=== PATIENT | female | born 1945 | race Caucasian/White ===

== ENCOUNTER 2019-10-23 15:15 | Outpatient (RCR) | payer OTHER, SELFPAY ==
[2019-10-01 15:08] VITALS: BP_SYST 130
--- NOTE | 2019-10-01 16:09 | PTOPEVAL ---
PHYSICAL THERAPY EVALUATION AND PLAN OF CARE 10-01-2019 The PT evaluation was completed for R and L shoulder pain. Her plan of treatment is scheduled for 1-2 x/week for 4 weeks. Thank you for referring Jeanette Pan to [facility]. Please review, sign, date and return this plan of care PAVEL. I agree with and certify that the following plan of care is medically necessary. Referring Physician Date Attending Provider: Elie Soria DO *PT Outpatient Evaluation Start: 10/01/19 15:08 Document 10/01/19 15:08 BRADY (Rec: 10/01/19 16:02 BRADY [email or web address]) Outpatient Past Medical History Past Medical History Source of Past Medical History Patient Neurological History Hx Neurological Disorders No Significant History Cardiovascular History Hx Hypertension Yes: meds Respiratory History Hx Respiratory Disorders No Significant History Gastrointestinal History Hx Gastrointestinal Disorders No Significant History Genitourinary History Hx Genitourinary Disorders No Significant History Musculoskeletal History Hx Arthritis Yes: hands/thumbs Hematological History Hx Hematological Disorders No Significant History Endocrine History Hx Diabetes Yes: meds HEENT History Hx Other HEENT Disorders Yes: tinnitis B ears, wear glasses Psychosocial History Hx Depression Yes: doing better, taking meds Other History Hx Other Surgeries Yes: gall bladder, ovarian cyst removed--benign Evaluation Information Problem Diagnosis R and L shoulder pain Onset August 31, 2019 Subjective Information R shoulder about one month ago Query Text:As Reported By Patient/ , when throwing trash bag over Family head to throw out and hurt immediately; L shoulder hurting a while was under arm at arm pit, is less there now and moved to side of arm; Diagnostic Tests X-Rays For This Problem Yes: L shoulder-Ok Previous Treatments Previous Treatments For This Problem no therapy for shoulders Prior Level of Function Activity Level (Last 3 Months) 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
--- NOTE | 2019-10-16 14:42 | PCPTNOTE ---
Patient did not show up for scheduled appointment this date.
--- NOTE | 2019-10-30 15:44 | PCPTNOTE ---
pt did not show for today's reevaluation.
--- NOTE | 2019-12-02 12:44 | PCPTNOTE ---
PHYSICAL THERAPY DISCHARGE 12-02-2019 Attending Provider: Elie Soria DO Patient:Jeanette Pan Date of :1945 Mrs. Pan has not returned for any further treatments since 10/23/2019, therefore she will be discharged at this time. She has received 3 PT sessions, for the diagnosis of R and L shoulder pain, she then stopped attending PT. The goals were not addressed. Thank you for referring Jeanette to [facility]. Please review, sign, date and return this discharge summary PAVEL. I have been updated about the patient's current status and I agree with discharge from the above service at this time. Referring Physician Date
== END 2019-12-02 14:03 | disposition home or self-care (01) ==
LOC: ANHPT 15:15
PROVIDERS: PCP Internal Medicine; Visit Provider Internal Medicine
DX: M25.511 Pain in right shoulder (principal); M25.512 Pain in left shoulder
CPT/HCPCS: 97110; 97140; 97161

== ENCOUNTER 2020-01-07 10:50 | Outpatient (CLI) | payer OTHER, SELFPAY | END 2020-01-07 10:51 | disposition home or self-care (01) | LOC: ANHLAB 10:52 | PROVIDERS: PCP Internal Medicine; Visit Provider Internal Medicine | DX: E03.9 Hypothyroidism, unspecified (principal) | CPT/HCPCS: 36415; 84443 ==

== ENCOUNTER 2020-04-27 13:55 | Outpatient (CLI) | payer OTHER, SELFPAY ==
--- NOTE | ~2020-04-27 | MM_ITS ---
EXAMINATION: MM screening pascale BI w jazmyn HISTORY: Screening mammogram TECHNIQUE: Craniocaudal and mediolateral oblique 3-D tomosynthesis images were obtained and synthetic 2-D images were generated. CAD analysis was submitted and interpreted. COMPARISON: 03/20/2018, 03/17/2017, 02/09/2016 bilateral digital screening mammogram examinations BREAST PARENCHYMAL COMPOSITION: The breasts are heterogeneously dense, which may obscure small masses . FINDINGS: There are scattered bilateral benign calcifications. There is no evidence of suspicious ma ss, calcification, or architectural distortion to suggest malignancy in either breast. There has been no suspicious interval change. IMPRESSION: 1. No mammographic evidence of malignancy. 2. Recommend routine screening mammography in one year. BI-RADS Category 2: Benign finding(s). Reviewed, dictated and finalized at location A. FARMER
--- NOTE | ~2020-04-27 | DEXA_ITS ---
Bone Density Report Name: Jeanette Pan Age: 74 Sex: Female Ethnicity: White Date of : 1945 Indication: postmenopausal; height loss; hysterectomy; Referring Provider: Nhi Daily Study: Bone densitometry was performed. Exam Date: April 27, 2020 Accession number: [id number] Bone Density: Region BMD T-score Z-score Classification AP Spine (L1, L2) 0.971 -0.1 2.2 Normal Femoral Neck (Left) 0.561 -2.6 -0.5 Osteoporosis Total Hip (Left) 0.842 -0.8 1.0 Normal Total Hip Bilateral Avg 0.839 -0.8 1.0 Normal Femoral Neck (Right) 0.632 -2.0 0.2 Osteopenia Total Hip (Right) 0.834 -0.9 1.0 Normal World Health Organization criteria for BMD impression classify patients as: Normal (T-score at or above -1.0), Osteopenia (T-score between -1.0 and -2.5), or Osteoporosis (T-score at or below -2.5). 10-year Fracture Risk: FRAX not reported because: Some T-score for Spine Total or Hip Total or Femoral Neck at or below -2.5 Previous Exams: Region Exam Age BMD T-score BMD Change BMD Change Date g/cm2 vs Baseline vs Previous AP Spine(L1, L2) 04/27/2020 74 0.971 -0.1 -0.066(-6.4%)# -0.022(-2.2%) 03/17/2017 71 0.993 0.1 -0.044(-4.3%)# -0.044(-4.3%)# 01/15/2009 63 1.037 0.5 Total Hip(Left) 04/27/2020 74 0.842 -0.8 0.006(0.8%)# -0.007(-0.9%) 03/17/2017 71 0.849 -0.8 0.014(1.7%)# 0.014(1.7%)# 01/15/2009 63 0.835 -0.9 Total Hip(Right) 04/27/2020 74 0.834 -0.9 -0.020(-2.3%)# -0.035(-4.0%)* 03/17/2017 71 0.869 -0.6 0.015(1.8%)# 0.015(1.8%)# 01/15/2009 63 0.854 -0.7 *Denotes significance at 95% confidence level, LSC for AP Spine = 0.022 g/cm2, LSC for Total Hip = 0.027 g/cm2 Clinical Information Provided by Patient: Has used the following medications: Vitamin D, Calcium Has the following medical conditions: Hysterectomy Patient maximum height was 66 No regular weight bearing exercise Drinks caffeinated beverages Onset of menses at age 14 Number of children 3 Impression: The patient has osteoporosis, based on the Left Femoral Neck T-score. The BMD for the Total Hip(Right) decreased, changing by -4.0% since the last DXA exam. Discussion: INCREASED RISK OF FRACTURE. BONE DENSITY IS UNDESIRABLY LOW AT ONE OR MORE SKELETAL SITES, CONSISTENT WITH POSTMENOPAUSAL OSTEOPOROSIS. This patient's lowest T-score meets the World Health Organization's (WHO) criteria for osteoporosis at one or more sites (T-score -2.5 or be
== END 2020-04-27 13:56 | disposition home or self-care (01) ==
LOC: ANHIMG 13:57
PROVIDERS: PCP Internal Medicine; Visit Provider Nurse Practitioner
DX: Z12.31 Encounter for screening mammogram for malignant neoplasm of breast (principal); Z13.820 Encounter for screening for osteoporosis; M81.0 Age-related osteoporosis without current pathological fracture; M85.851 Other specified disorders of bone density and structure, right thigh; Z78.0 Asymptomatic menopausal state
CPT/HCPCS: 77063; 77067; 77080

== ENCOUNTER 2020-09-03 14:15 | Outpatient (CLI) | payer OTHER, SELFPAY ==
--- NOTE | ~2020-09-03 | XR_ITS ---
XR_CERV2-3V_CR 09/03/2020 14:41 Indication: Neck pain Procedure: 3 views of the cervical spine Comparison: No prior studies for comparison. Findings: Vertebral body heights are maintained. Normal cervical lordosis. Mild disc narrowing at C5- 6 and C6-7. There is mild multilevel uncinate and facet hypertrophy. No prevertebral soft tissue swel ling. Odontoid process within normal limits. Impression: 1: Mild cervical spondylosis. Reviewed, dictated and finalized at location A. Impression: 1: Mild cervical spondylosis.
--- NOTE | ~2020-09-03 | XR_ITS ---
EXAMINATION: XR shoulder LT min 2V, XR humerus LT DATE: 09/03/2020 14:41 INDICATION: Left shoulder and upper arm pain. TECHNIQUE: 1. AP internally and externally rotated, AP oblique externally rotated and axillary views of the left shoulder were obtained. 2. AP and lateral views of the left humerus were obtained. COMPARISON: None FINDINGS: Normal alignment from the left shoulder through the elbow. No fracture. Mild polyarticular osteoarth ritis including at the left elbow, glenohumeral and acromioclavicular joints. Small region of globula r calcification along the posterior margin of the greater tuberosity consistent with left rotator cuf f calcific tendinopathy likely via the teres minor or posterior infraspinatus tendons. Soft tissues a re otherwise unremarkable. Visualized portions of the lungs are clear. IMPRESSION: 1. Posterior left rotator cuff calcific tendinitis. 2. 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 Reviewed, dictated and finalized at location A. IMPRESSION: 1. Posterior left rotator cuff calcific tendinitis. 2. 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
== END 2020-09-03 14:16 | disposition home or self-care (01) ==
PROVIDERS: PCP Internal Medicine; Visit Provider Nurse Practitioner
DX: M47.892 Other spondylosis, cervical region (principal); M19.012 Primary osteoarthritis, left shoulder; M75.32 Calcific tendinitis of left shoulder
CPT/HCPCS: 72040; 73030; 73060

== ENCOUNTER 2020-10-20 16:27 | Outpatient (CLI) | payer OTHER, SELFPAY ==
[2020-10-20 17:47] LABS: Alanine Aminotransferase 23 U/L (4-35); Albumin Level 4.1 g/dL (3.5-5.1); Alkaline Phosphatase 60 U/L (38-126); Anion Gap 8 mmol/L (8-16); Aspartate Amino Transferase 27 U/L (14-36); Bilirubin,Total 0.6 mg/dL (0.2-1.3); Blood Urea Nitrogen 13 mg/dL (7-17); Calcium 9.3 mg/dL (8.4-10.2); Carbon Dioxide 25 mmol/L (22-30); Chloride 105 mmol/L (98-107); Cholesterol 149 mg/dL (0-200); Estimated Glomerular Filt Rate > 60; Glucose 113 mg/dL (65-105); HDL Direct 33 mg/dL; Potassium 4.1 mmol/L (3.4-5.0); Sodium 138 mmol/L (137-145); Triglycerides 274 mg/dL (<150)
[2020-10-20 17:49] LABS: Hemoglobin A1C 7.8 % (<5.7)
[2020-10-20 17:58] LABS: LDL Cholesterol Direct 77 mg/dL
[2020-10-20 18:27] LABS: Vitamin D 25 Hydroxy 46.1 ng/mL
[2020-10-20 18:55] LABS: Creatinine Urine 173.1 mg/dL
[2020-10-20 19:01] LABS: MALB Creatinine Ratio 6.2 mg/g (0-30); Microalbumin Urine Random 10.7 mg/L (0-16.7)
== END 2020-10-20 16:28 | disposition home or self-care (01) ==
LOC: ANHLAB 16:30
PROVIDERS: PCP Internal Medicine; Visit Provider Nurse Practitioner
DX: E78.2 Mixed hyperlipidemia (principal); E11.40 Type 2 diabetes mellitus with diabetic neuropathy, unspecified; Z78.0 Asymptomatic menopausal state
CPT/HCPCS: 36415; 80053; 80061; 82043; 82306; 83036

== ENCOUNTER 2020-12-07 13:26 | Outpatient (CLI) | payer OTHER, SELFPAY ==
--- NOTE | ~2020-12-07 | US_ITS ---
US axilla LT 12/07/2020 13:58 Indication: Left axillary pain Procedure: High-resolution ultrasound of the left axilla Comparison: 07/26/2018 Findings: There are multiple normal-appearing left axillary lymph nodes, largest measuring 1.7 cm. No suspicious masses to suggest malignancy. No abnormal fluid collections. Impression: 1: Normal-appearing left axillary lymph nodes, likely reactive. BI-RADS CATEGORY 2 - BENIGN FINDINGS Reviewed, dictated and finalized at location A. Impression: 1: Normal-appearing left axillary lymph nodes, likely reactive. BI-RADS CATEGORY 2 - BENIGN FINDINGS
== END 2020-12-07 13:27 | disposition home or self-care (01) ==
LOC: ANHIMG 13:27
PROVIDERS: PCP Internal Medicine; Visit Provider Internal Medicine
DX: M79.622 Pain in left upper arm (principal)
CPT/HCPCS: 76882

== ENCOUNTER 2021-03-19 11:26 | Outpatient (CLI) | payer OTHER, SELFPAY ==
[2021-03-19 12:17] LABS: Alanine Aminotransferase 20 U/L (4-35); Alkaline Phosphatase 59 U/L (38-126); Anion Gap 10 mmol/L (8-16); Aspartate Amino Transferase 24 U/L (14-36); Bilirubin,Total 0.8 mg/dL (0.2-1.3); Blood Urea Nitrogen 23 mg/dL (7-17); Calcium 9.6 mg/dL (8.4-10.2); Carbon Dioxide 22 mmol/L (22-30); Chloride 104 mmol/L (98-107); Cholesterol 165 mg/dL (0-200); Estimated Glomerular Filt Rate 54; Glucose 192 mg/dL (65-110); HDL Direct 45 mg/dL; Potassium 4.4 mmol/L (3.4-5.0); Sodium 136 mmol/L (137-145); Triglycerides 232 mg/dL (<150)
[2021-03-19 12:27] LABS: LDL Cholesterol Direct 83 mg/dL
[2021-03-19 12:31] LABS: Vitamin D 25 Hydroxy 44.9 ng/mL
[2021-03-19 12:32] LABS: Hemoglobin A1C 7.8 % (<5.7)
== END 2021-03-19 11:27 | disposition home or self-care (01) ==
LOC: ANHLAB 11:28
PROVIDERS: PCP Internal Medicine; Visit Provider Internal Medicine
DX: E11.40 Type 2 diabetes mellitus with diabetic neuropathy, unspecified (principal); I10 Essential (primary) hypertension; E55.9 Vitamin D deficiency, unspecified; E78.5 Hyperlipidemia, unspecified
CPT/HCPCS: 36415; 80053; 80061; 82306; 83036

== ENCOUNTER 2021-05-26 14:15 | Outpatient (CLI) | payer OTHER, SELFPAY ==
--- NOTE | ~2021-05-26 | MM_ITS ---
EXAMINATION: MM screening pascale BI w jazmyn HISTORY: Screening TECHNIQUE: Craniocaudal and mediolateral oblique 3-D tomosynthesis images were obtained and synthetic 2-D images were generated. CAD analysis was submitted and interpreted. COMPARISON: Comparison to multiple prior studies sequentially, with oldest reviewed study dated 08/2013. BREAST PARENCHYMAL COMPOSITION: The breasts are heterogeneously dense, which may obscure small masses . FINDINGS: There is no evidence of suspicious mass, calcification, or architectural distortion to sugg est malignancy in either breast. There has been no suspicious interval change. IMPRESSION: 1. No mammographic evidence of malignancy. 2. Recommend routine screening mammography in one year. BI-RADS Category 1: Negative Reviewed, dictated and finalized at location A. LING OPERATOR
== END 2021-05-26 14:16 | disposition home or self-care (01) ==
LOC: ANHIMG 14:16
PROVIDERS: PCP Internal Medicine; Visit Provider Internal Medicine
DX: Z12.31 Encounter for screening mammogram for malignant neoplasm of breast (principal)
CPT/HCPCS: 77063; 77067

== ENCOUNTER 2021-10-20 09:44 | Outpatient (CLI) | payer OTHER, SELFPAY ==
[2021-10-20 10:31] LABS: Alanine Aminotransferase 23 U/L (6-35); Alkaline Phosphatase 63 U/L (38-126); Anion Gap 6 mmol/L (8-16); Aspartate Amino Transferase 25 U/L (14-36); Bilirubin,Total 0.7 mg/dL (0.2-1.3); Blood Urea Nitrogen 17 mg/dL (7-17); Calcium 8.6 mg/dL (8.4-10.2); Carbon Dioxide 24 mmol/L (22-30); Chloride 105 mmol/L (98-107); Cholesterol 171 mg/dL (0-200); Estimated Glomerular Filt Rate > 60; Glucose 176 mg/dL (65-110); HDL Direct 41 mg/dL; Sodium 135 mmol/L (137-145); Triglycerides 243 mg/dL (<150)
[2021-10-20 10:42] LABS: LDL Cholesterol Direct 83 mg/dL
[2021-10-20 10:55] LABS: Creatinine Urine 114.9 mg/dL
[2021-10-20 10:58] LABS: MALB Creatinine Ratio 9.6 mg/g (0-30)
[2021-10-20 13:38] LABS: Hemoglobin A1C 7.1 % (<5.7)
== END 2021-10-20 09:45 | disposition home or self-care (01) ==
LOC: ANHLAB 09:46
PROVIDERS: PCP Internal Medicine; Visit Provider Internal Medicine
DX: E78.5 Hyperlipidemia, unspecified (principal); E11.40 Type 2 diabetes mellitus with diabetic neuropathy, unspecified; E78.2 Mixed hyperlipidemia; E03.9 Hypothyroidism, unspecified
CPT/HCPCS: 36415; 80053; 80061; 82043; 83036; 84443

== ENCOUNTER 2022-04-18 17:57 | Emergency (ER) | payer OTHER, SELFPAY ==
--- NOTE | ~2022-04-18 | XR_ITS ---
EXAM: XR humerus RT DATE: 04/18/2022 18:26 HISTORY: fall TODAY, right upper arm pain, LAT PROXIMAL PAIN . COMPARISON: None available. FINDINGS: Decreased mineralization. No fracture or dislocation. No lytic or blastic lesion. Degenera tive changes in the shoulder and elbow. Rotator cuff calcific tendinitis. No erosion or periosteal ch sal. Soft tissues within normal limits. IMPRESSION: No acute osseous finding in the right humerus. Reviewed, dictated and finalized at location K. OLEUM ENGINEERING TEACHER
--- NOTE | ~2022-04-18 | CT_ITS ---
CT OF right shoulder EXAMINATION: CT shoulder RT wo con DATE: 04/18/2022 19:23 INDICATION: Right shoulder pain, decreased range of motion, fall. TECHNIQUE: Computed tomography (CT) of the right shoulder was performed without intravenous contrast. Automated exposure control and iterative reconstruction technique were employed. The dose-length pro duct was 429.63 mGy-cm. COMPARISON: X-ray right humerus, same date FINDINGS: Limitations: None Bones: Rotator cuff calcific tendinitis. Mild AC joint hypertrophy. Mild glenohumeral osteoarthritis. The included osseous structures are otherwise within normal limits. There are no erosive or destruct javier bony lesions. Soft Tissues:The soft tissues appear within normal limits. No evidence of mass or fluid collection. No lymphadenopathy. No suspicious lung lesion. Fluid: No significant fluid within the joint capsule or surrounding bursal spaces. IMPRESSION: No acute osseous finding in the right shoulder. Reviewed, dictated and finalized at location K. COLLECTOR ATTENDANT
[2022-04-18 18:05] VITALS: BP 116/101; PULSE 89; RESP 12; TEMP 36.3; O2SAT 98
--- NOTE | 2022-04-18 18:59 | ED.FALL ---
HPI - Fall General Chief Complaint: Fall Stated Complaint: fall, right arm pain Time Seen by Provider: 04/18/22 18:29 Source: patient Mode of arrival: ambulatory Limitations: no limitations History of Present Illness HPI Narrative: This is a 76-year-old female that presents to the emergency department after a fall today with right upper arm pain. Reports she was chasing after her dog in the grass and tripped and fell onto her right arm. She did not hit her head or lose consciousness. Reports right shoulder pain with decreased range of motion. She does not take anticoagulation. Denies any other focal injuries or areas of pain. No prodromal symptoms. Denies neck pain, back pain, numbness, or weakness. Related Data Home Medications Medication Instructions Recorded Confirmed bupropion HCl 300 mg 24 hr tablet, 300 mg PO QAM 06/21/19 10/29/21 extended release omega-3 fatty acids 1,000 mg 1,000 mg PO DAILY 03/10/20 10/29/21 capsule (Fish Oil Concentrate) Allergies Allergy/AdvReac Type Severity Reaction Status Date / Time No Known Allergies Allergy Verified 10/29/21 13:39 Review of Systems Review of Systems: CONSTITUTIONAL: Denies fever CARDIOVASCULAR: Denies chest pain GASTROINTESTINAL: Denies vomiting MUSCULOSKELETAL: Reports joint pain and myalgia. Denies back pain NEUROLOGIC: Denies headache, numbness, or weakness. All systems reviewed & are unremarkable except as noted in HPI and below PMFSH Past Medical History Medical History (Updated 04/18/22 @ 19:58 by Kathie Yang PA-C) Benign essential hypertension Cholecystectomy planned Mixed hyperlipidemia Postmenopausal Screening for breast cancer Strain of left biceps Type 2 diabetes mellitus with diabetic neuropathy, unspecified Surgical History Surgical History H/O laparoscopy H/O tubal ligation H/O: hysterectomy Hx of salpingo-oophorectomy, bilateral Family History Family History Mother Diabetes mellitus Hypertension Family history of throat cancer Patient's mother is Father Family history of lung cancer Family history of diabetes mellitus in first degree relative Patient's father is Other Family history of arthritis Family history of malignant neoplasm Social History Social History Smoking packs per day: 1 Smoking cigarettes per day: 20.0 Years smoked: 10 Smoking pack-years: 10.00 Smoking status: Former smoker Tobacco type: cigarettes Second hand tobacco smoke exposure: Yes Smoking end date: 04/10/73 Alcohol intake: current Alcohol use details: Social Substance use: never Substance use type: does not use Exam Narrative: GENERAL: Elderly, well-nourished, and in no acute distress. HEAD: Normocephalic, atraumatic. EYES: PERRLA and EOMI. ENT: Nares clear, no rhinorrhea or epistaxis. Mucous membranes moist. Oropharynx without tonsillar hypertrophy exudate or other lesions. Bilateral TMs pearly ramon non-bulging NECK: Supple. No adenopathy or masses. No midline spinal tenderness CHEST: Clear to auscultation. No respiratory distress. No wheezes rales or rhonchi HEART: Regular rate and rhythm. No murmur heard. Normal peripheral pulses. BACK: No midline spinal tenderness EXTREMITIES: Decreased active range of motion above 90 degrees due to pain. No edema or obvious deformity. Normal radial pulse. Normal sensation SKIN: Warm, dry, no rash. NEURO: No focal deficits. Alert and oriented x3. Cranial nerves II through XII grossly intact. Normal gait PSYCH: Normal mood and affect Course Course Emergency Course: Patient updated on workup, agrees with plan of care. Vital Signs Vital signs: Vital Signs Temperature 97.3 F L 04/18/22 18:05 Pulse Rate 89 04/18/22 18:05 Respiratory Rate 12 04/18/22 18:05
== END 2022-04-18 20:06 | disposition home or self-care (01) ==
PROVIDERS: Emergency Provider Physician Assistant; PCP Internal Medicine
DX: S49.91XA Unspecified injury of right shoulder and upper arm, initial encounter (principal); I10 Essential (primary) hypertension; E78.2 Mixed hyperlipidemia; E11.40 Type 2 diabetes mellitus with diabetic neuropathy, unspecified; Z90.722 Acquired absence of ovaries, bilateral; Z90.79 Acquired absence of other genital organ(s); Z90.710 Acquired absence of both cervix and uterus; Z87.891 Personal history of nicotine dependence; W01.0XXA Fall on same level from slipping, tripping and stumbling without subsequent striking against object, initial encounter
CPT/HCPCS: 73060; 73200; 99284; A4565

== ENCOUNTER 2022-05-13 14:16 | Outpatient (CLI) | payer OTHER, SELFPAY ==
[2022-05-13 15:19] LABS: Hemoglobin A1C 6.9 % (<5.7)
[2022-05-13 15:23] LABS: Alanine Aminotransferase 20 U/L (6-35); Albumin Level 4.2 g/dL (3.5-5.1); Alkaline Phosphatase 68 U/L (38-126); Anion Gap 6 mmol/L (8-16); Aspartate Amino Transferase 22 U/L (14-36); Blood Urea Nitrogen 18 mg/dL (7-17); Calcium 8.5 mg/dL (8.4-10.2); Carbon Dioxide 25 mmol/L (22-30); Chloride 102 mmol/L (98-107); Cholesterol 163 mg/dL (0-200); Estimated Glomerular Filt Rate > 60; Glucose 157 mg/dL (65-110); HDL Direct 41 mg/dL; Potassium 4.4 mmol/L (3.4-5.0); Sodium 133 mmol/L (137-145); Triglycerides 276 mg/dL (<150)
[2022-05-13 15:35] LABS: LDL Cholesterol Direct 80 mg/dL
== END 2022-05-13 14:17 | disposition home or self-care (01) ==
PROVIDERS: PCP Internal Medicine; Visit Provider Nurse Practitioner
DX: E78.5 Hyperlipidemia, unspecified (principal); E11.9 Type 2 diabetes mellitus without complications; E03.9 Hypothyroidism, unspecified
CPT/HCPCS: 36415; 80053; 80061; 83036; 84443

== ENCOUNTER 2022-07-21 11:13 | Outpatient (CLI) | payer OTHER, SELFPAY ==
--- NOTE | ~2022-07-21 | MM_ITS ---
EXAMINATION: MM screening pascale BI w jazmyn HISTORY: Screening mammogram TECHNIQUE: Craniocaudal and mediolateral oblique 3-D tomosynthesis images were obtained and synthetic 2-D images were generated. CAD analysis was submitted and interpreted. COMPARISON: May 26, 2021, April 27, 2020, March 20, 2018 bilateral screening mammogram exam inations BREAST PARENCHYMAL COMPOSITION: The breasts are heterogeneously dense, which may obscure small masses . FINDINGS: Scattered bilateral benign calcifications. There is no evidence of suspicious mass, calcifi cation, or architectural distortion to suggest malignancy in either breast. There has been no suspici ous interval change. IMPRESSION: 1. No mammographic evidence of malignancy. 2. Recommend routine screening mammography in one year. BI-RADS Category 2: Benign finding(s). Reviewed, dictated and finalized at location A.
== END 2022-07-21 11:14 | disposition home or self-care (01) ==
PROVIDERS: PCP Internal Medicine; Visit Provider Nurse Practitioner Family
DX: Z12.31 Encounter for screening mammogram for malignant neoplasm of breast (principal)
CPT/HCPCS: 77063; 77067

== ENCOUNTER 2022-09-15 13:25 | Outpatient (CLI) | payer OTHER, SELFPAY ==
[2022-09-15 19:16] LABS: Hemoglobin A1C 6.8 % (<5.7)
== END 2022-09-15 13:26 | disposition home or self-care (01) ==
PROVIDERS: PCP Internal Medicine; Visit Provider Nurse Practitioner Family
DX: E11.9 Type 2 diabetes mellitus without complications (principal)
CPT/HCPCS: 36415; 83036

== ENCOUNTER 2023-03-23 14:36 | Outpatient (CLI) | payer OTHER, SELFPAY ==
[2023-03-23 15:37] LABS: Basophils Absolute Auto 0.1 K/mm3 (0.0-0.1); Basophils Percent Auto 0.7 % (0.2-1.2); Eosinophils Absolute Auto 0.1 K/mm3 (0-0.3); Eosinophils Percent Auto 1.7 % (0-4.4); Hematocrit 39.6 % (37.0-47.0); Hemoglobin 13.1 g/dL (12.0-15.0); Immature Granulocyte Absolute 0.03 K/mm3 (0.00-0.031); Immature Granulocyte Percent A 0.4 % (0-0.5); Lymphocytes Absolute Auto 1.63 K/mm3 (0.9-3.2); Lymphocytes Percent Auto 21.5 % (18.3-44.2); Mean Corpuscular HGB Conc 33.1 g/dl (32-36); Mean Corpuscular Hemoglobin 29.5 pg (26-34); Mean Corpuscular Volume 89.2 fl (80-100); Mean Platelet Volume 10.8 fl (7.4-10.4); Monocytes Absolute Auto 0.5 K/mm3 (0.1-0.6); Monocytes Percent Auto 5.9 % (2.6-8.5); Neutrophils Absolute Auto 5.3 K/mm3 (1.3-6.7); Neutrophils Percent Auto 69.8 % (45.5-73.1); Platelet Count Result 242 k/mm3 (150-375); Red Blood Count 4.44 M/mm3 (4.2-5.4); Red Cell Distribution Width 13.4 % (11.5-14.5); White Blood Count 7.6 K/mm3 (4.5-10.0)
[2023-03-23 16:09] LABS: Creatinine Urine 60.2 mg/dL
[2023-03-23 16:27] LABS: MALB Creatinine Ratio < 10.0 mg/g (0-30); Microalbumin Urine Random < 6.0 mg/L (0-16.7)
== END 2023-03-23 14:37 | disposition home or self-care (01) ==
LOC: ANHLAB 14:38
PROVIDERS: PCP Family Medicine; Visit Provider Nurse Practitioner Family
DX: E11.9 Type 2 diabetes mellitus without complications (principal); Z00.00 Encounter for general adult medical examination without abnormal findings
CPT/HCPCS: 36415; 82043; 85025

== ENCOUNTER 2023-06-19 10:33 | Outpatient (CLI) | payer OTHER, SELFPAY ==
--- NOTE | ~2023-06-19 | US_ITS ---
EXAMINATION: US venous doppler [facility] DATE: 06/19/2023 11:01 INDICATION: Left lower limb pain TECHNIQUE: Grayscale ultrasound images without and with compression and Doppler ultrasound images of the left lower extremity veins were obtained. COMPARISON: None. FINDINGS: The visualized portions of left common femoral vein, profunda (deep) femoral vein, femoral vein, popl iteal vein, peroneal veins, posterior tibial veins, gastrocnemius vein and greater saphenous vein out flow are patent. IMPRESSION: 1. No deep venous thrombosis in the left lower limb. Reviewed, dictated and finalized at location B.
--- NOTE | ~2023-06-19 | CT_ITS ---
EXAMINATION: CT lumbar spine wo con DATE: 06/19/2023 10:49 INDICATION: Radiculopathy and lower mid back pain radiating to the left. TECHNIQUE: Computed tomography (CT) of the lumbar spine was performed without intravenous contrast. A utomated exposure control and iterative reconstruction technique were employed. The dose-length produ ct was 1112.25 mGy-cm. COMPARISON: Lumbar spine MR dated 12/09/2009 FINDINGS: 20 degrees lumbar levoscoliosis. 2 mm anterolisthesis L4 on L5 and 4 mm retrolisthesis L5 on S1. Vert ebral body heights are normal. No fracture. Severe disc height loss at L5-S1 and at the right side of L3-L4. Moderate disc height loss with right-sided predominance at L2-L3 and L4-L5. Several diverticu la along the visualized portions of the sigmoid colon without adjacent comparison to suggest divertic ulitis. Paravertebral soft tissues are otherwise unremarkable. The following disc levels are specific ally discussed: T10-T11: The disc does not extend beyond the endplate margins. There is mild bilateral facet osteoart hritis. There is some ossification along the bilateral ligamentum flavum. There is mild bilateral johnathan ral foraminal stenosis and mild central canal stenosis. T11-T12: The disc does not extend beyond the endplate margin. There is mild bilateral facet joint ost eoarthritis. There is no neural foraminal stenosis. There is no central canal stenosis. T12-L1: The disc does not extend beyond the endplate margin. There is mild left and moderate right fa cet joint osteoarthritis. There is no neural foraminal stenosis. There is no central canal stenosis. L1-L2: Disc is bulging. There is mild bilateral facet joint osteoarthritis. There is mild left neural foraminal stenosis. There is mild central canal stenosis. L2-L3: Disc is bulging. There is moderate bilateral facet joint osteoarthritis. There is moderate rig ht and mild to moderate left neural foraminal stenosis. There is moderate central canal stenosis. L3-L4: Disc is bulging. There is moderate left and severe right facet joint osteoarthritis. There is mild left and moderate right neural foraminal stenosis. There is moderate central canal stenosis. L4-L5: Disc is bulging. There is severe bilateral facet joint osteoarthritis. There is moderate left and moderate to severe right neural foraminal stenosis. There is mild central canal stenosis. L5-S1: Disc is bulging. There is mild right and moderate left facet joint osteoarthritis. There is mo derate right and moderate to severe left neural foraminal stenosis. There is mild central canal steno sis. IMPRESSION: 1. 20 degrees lumbar levoscoliosis with severe spondylosis. Reviewed, dictated and finalized at location B.
== END 2023-06-19 10:34 | disposition home or self-care (01) ==
LOC: ANHIMG 10:35
PROVIDERS: PCP Family Medicine; Visit Provider Nurse Practitioner Family
DX: I82.409 Acute embolism and thrombosis of unspecified deep veins of unspecified lower extremity (principal); M47.896 Other spondylosis, lumbar region; M79.662 Pain in left lower leg
CPT/HCPCS: 36415; 72131; 80053; 80061; 83036; 84443; 93971

== ENCOUNTER 2023-06-19 12:17 | Outpatient (CLI) | payer OTHER, SELFPAY ==
[2023-06-19 12:58] LABS: Alanine Aminotransferase 24 U/L (6-35); Albumin Level 3.9 g/dL (3.5-5.1); Alkaline Phosphatase 61 U/L (38-126); Anion Gap 9 mmol/L (8-16); Aspartate Amino Transferase 26 U/L (14-36); Blood Urea Nitrogen 19 mg/dL (7-17); Calcium 8.8 mg/dL (8.4-10.2); Carbon Dioxide 22 mmol/L (22-30); Chloride 107 mmol/L (98-107); Cholesterol 138 mg/dL (0-200); Estimated Glomerular Filt Rate > 60; Glucose 151 mg/dL (65-110); HDL Direct 44 mg/dL; Potassium 4.2 mmol/L (3.4-5.0); Sodium 138 mmol/L (137-145); Triglycerides 151 mg/dL (<150)
[2023-06-19 13:08] LABS: LDL Cholesterol Direct 81 mg/dL
[2023-06-19 15:23] LABS: Hemoglobin A1C 7.1 % (<5.7)
== END 2023-06-19 12:18 | disposition home or self-care (01) ==
PROVIDERS: PCP Family Medicine; Visit Provider Nurse Practitioner
DX: E78.5 Hyperlipidemia, unspecified (principal); E11.9 Type 2 diabetes mellitus without complications; E03.9 Hypothyroidism, unspecified; R60.9 Edema, unspecified
CPT/HCPCS: 36415; 80053; 80061; 83036; 84443

== ENCOUNTER 2023-12-25 11:45 | Outpatient (CLI) | payer OTHER, SELFPAY ==
--- NOTE | ~2023-12-25 | XR_ITS ---
XR_CERV2-3V_CR Ordering provider: Patricia Carlson APRN History: . LEFT SIDED NECK PAIN, NO INJURY . Comparison: September 03, 2020 FINDINGS: VERTEBRAL BODIES: Normal height and alignment. No visible fracture or subluxation. The dens is intact . DISK SPACES: Narrowing of the disc C5-C6 and C6-C7 Multilevel uncovertebral joint osteoarthritic changes. Multilevel facet joint disease PARASPINOUS SOFT TISSUES: No prevertebral soft tissue swelling. IMPRESSION: No acute osseous abnormality cervical spine. Reviewed, dictated and finalized at location A.
--- NOTE | ~2023-12-25 | XR_ITS ---
XR chest 2V Ordering provider: Patricia Carlson APRN History: 77 years Female with . SOB, . Comparison: August 29, 2014 FINDINGS: MEDIASTINUM: The cardiac silhouette is not enlarged. LUNGS: No infiltrates, effusions or pneumothorax. OTHER: No free air under the diaphragm. Degenerative changes of the spine. IMPRESSION: No acute cardiopulmonary pathology. Reviewed, dictated and finalized at location A.
--- NOTE | ~2023-12-25 | XR_ITS ---
XR shoulder LT min 2V Ordering provider: Patricia Carlson APRN History: . Pain in left shoulder, NEURALGIA/NEURITIS/CERVICALGIA . Comparison: September 03, 2022 FINDINGS: BONES: No acute fracture or dislocation. Degenerative changes in the humeral head. JOINT SPACES: The acromioclavicular joint is normal. Mild osteoarthritis glenohumeral joint space. SOFT TISSUES: Normal. IMPRESSION: No acute osseous abnormality left shoulder. Reviewed, dictated and finalized at location A.
[2023-12-25 12:33] LABS: Basophils Percent Auto 0.7 % (0.2-1.2); Eosinophils Absolute Auto 0.1 K/mm3 (0-0.3); Eosinophils Percent Auto 2.1 % (0-4.4); Hematocrit 37.9 % (37.0-47.0); Hemoglobin 12.1 g/dL (12.0-15.0); Immature Granulocyte Absolute 0.03 K/mm3 (0.00-0.031); Immature Granulocyte Percent A 0.5 % (0-0.5); Lymphocytes Absolute Auto 1.34 K/mm3 (0.9-3.2); Lymphocytes Percent Auto 23.2 % (18.3-44.2); Mean Corpuscular HGB Conc 31.9 g/dl (32-36); Mean Corpuscular Hemoglobin 28.9 pg (26-34); Mean Corpuscular Volume 90.5 fl (80-100); Mean Platelet Volume 10.2 fl (7.4-10.4); Monocytes Absolute Auto 0.4 K/mm3 (0.1-0.6); Monocytes Percent Auto 6.9 % (2.6-8.5); Neutrophils Absolute Auto 3.9 K/mm3 (1.3-6.7); Neutrophils Percent Auto 66.6 % (45.5-73.1); Platelet Count Result 184 k/mm3 (150-375); Red Blood Count 4.19 M/mm3 (4.2-5.4); Red Cell Distribution Width 13.5 % (11.5-14.5); White Blood Count 5.8 K/mm3 (4.5-10.0)
[2023-12-25 12:48] LABS: Alanine Aminotransferase 22 U/L (6-35); Albumin Level 3.8 g/dL (3.5-5.1); Alkaline Phosphatase 50 U/L (38-126); Anion Gap 8 mmol/L (4-12); Aspartate Amino Transferase 25 U/L (14-36); Bilirubin,Total 0.8 mg/dL (0.2-1.3); Blood Urea Nitrogen 17 mg/dL (7-17); Calcium 8.6 mg/dL (8.4-10.2); Carbon Dioxide 27 mmol/L (22-30); Chloride 102 mmol/L (98-107); Cholesterol 139 mg/dL (0-200); Estimated Glomerular Filt Rate 53; Glucose 151 mg/dL (65-110); HDL Direct 43 mg/dL; Potassium 4.4 mmol/L (3.4-5.0); Sodium 137 mmol/L (137-145); Triglycerides 197 mg/dL (<150)
[2023-12-25 12:59] LABS: LDL Cholesterol Direct 70 mg/dL
[2023-12-25 14:17] LABS: Creatinine Urine 95.4 mg/dL
[2023-12-25 14:22] LABS: MALB Creatinine Ratio 7.1 mg/g (0-30); Microalbumin Urine Random 6.8 mg/L (0-16.7)
[2023-12-25 15:37] LABS: Hemoglobin A1C 6.8 % (<5.7)
== END 2023-12-25 11:46 | disposition home or self-care (01) ==
LOC: ANHLAB 11:58
PROVIDERS: PCP Family Medicine; Visit Provider Nurse Practitioner Family
DX: E03.9 Hypothyroidism, unspecified (principal); E11.9 Type 2 diabetes mellitus without complications; E66.9 Obesity, unspecified; F33.1 Major depressive disorder, recurrent, moderate; G47.33 Obstructive sleep apnea (adult) (pediatric); I10 Essential (primary) hypertension; K21.9 Gastro-esophageal reflux disease without esophagitis; M25.512 Pain in left shoulder; M54.2 Cervicalgia; M79.2 Neuralgia and neuritis, unspecified; R06.02 Shortness of breath
CPT/HCPCS: 36415; 71046; 72040; 73030; 80053; 80061; 82043; 83036; 84439; 84443; 85025

== ENCOUNTER 2024-05-23 14:57 | Outpatient (CLI) | payer OTHER, SELFPAY ==
--- NOTE | ~2024-05-23 | MM_ITS ---
EXAMINATION: MM screening pascale BI w jazmyn HISTORY: Screening TECHNIQUE: Craniocaudal and mediolateral oblique 3-D tomosynthesis images were obtained and synthetic 2-D images were generated. CAD analysis was submitted and interpreted. COMPARISON: Comparison to multiple prior studies sequentially, with oldest reviewed study dated 04/2015. BREAST PARENCHYMAL COMPOSITION: The breasts are heterogeneously dense, which may obscure small masses . FINDINGS: There is no evidence of suspicious mass, calcification, or architectural distortion to sugg est malignancy in either breast. There has been no suspicious interval change. IMPRESSION: 1. No mammographic evidence of malignancy. 2. Recommend routine screening mammography in one year. BI-RADS Category 1: Negative Reviewed, dictated and finalized at location B. STANT FINANCE MANAGER
--- OUTSIDE RECORDS SUMMARY | 2024-05-23 14:59 | XMS_ITS ---
Author Organization [facility] Address [address] [place] [address] Care Team Providers Care Cream Cheese Maker Name Role Phone Salazar Borjas MD Primary Care Provider UnavailArturo Olivier Unavailable [phone] Allergies No Known Allergies REASON FOR VISIT rx f/u Medications Medication SIG (Take, Route, Frequency, Duration) Notes Start Date End Date Status glipiZIDE 5 MG Oral 08/23/2023 Acti ve Alendronate Sodium 70 MG Oral 08/23/2023 Active Contour Blood Glucose System w/Device In Vitro 08/23/2023 Active Losartan Potassium 25 MG Oral 08/23/2023 Active metFORMIN HCl 1000 MG Oral 08/23/2023 Active Furosemide 20 MG Oral 08/23/2023 Ac tive MICROLET MISCELLANEOUS *Reorder from [facility] for eRx and Interaction Alerts* 08/23/2023 Active Levothyroxine Sodium 50 MCG Oral 08/23/2023 Active buPROPion HCl ER (XL) 150 MG 1 tablet in the morning Oral Once a day for 90 days Active methylPREDNISolone 4 MG Oral 08/23/2023 Not-Taking lamoTRIgine 25 MG Oral 08/23/2023 A ctive Social History Sex Assigned At : Social History Observation Description Sex Assigned At Female Problems Problem Type SNOMED Code ICD Code Onset Dates Problem Status W/U Status Risk Notes Problem Panic disorder (250765116) Panic disorder [episodic paroxysmal anxiety] without agoraphobia (F41.0) Active confirmed Problem Mild recurrent major depression (10106530) Major depressive disorder, recurrent, mild (F33.0) Active confirmed Problem Insomnia (550428466) Other insomnia (G47.09) Active confirmed Vital Signs Blood pressure systolic 168 mm Hg 03/13/20 24 Blood pressure diastolic 77 mm Hg 024 Heart Rate 82 /min 03/13/2024 Height 64.00 in 03/13/2024 Weight 204.6 lbs 03/13/2024 BMI 35.12 kg/m2 03/13/2024 Height-cm 162.56 cm 03/13/2024 Weight-kg 92.8 kg 03/13/2024 Encounters Encounter Location Date Provider Diagnosis [facility] [address] [place] [address] 03/13/2024 Arturo Woo Hypertension, unspecified type 401.9 ; Generalized anxiety disorder F41.1 ; Panic disorder [episodic paroxysmal anxiety] without agoraphobia F41.0 ; Major depressive disorder, recurrent, mild F33.0 and Other insomnia G47.09 Assessments Encounter Date Diagnosis (ICD Code) Assessment Notes Treatment Notes Treatment Clinical Notes Section Notes 03/13/2024 Hypertension, unspecified type (ICD9-CM - 401.9) 1. Insomnia: - Patient reports difficulty sleeping due to playing games on electronic devices and stress related to her daughter's behavior. - Plan: Encourage the patient to establish a bedtime routine that avoids stimulating activities such as playing games on electronic devices. Recommend relaxation techniques, such as deep breathing exercises or counting, to help distract from stressors before bedtime. 2. Mild depression: - Patient reports experiencing mild depression. - Currently on bupropion XL 150 mg. - Plan: Continue bupropion XL 150 mg as prescribed. Monitor the patient's mood and depressive symptoms during follow-up visits. 3. Anxiety: - Patient reports occasional anxiety, but not as severe as before. - Plan: Continue to monitor anxiety levels during follow-up visits. Encourage the patient to practice relaxation techniques and stress management strategies. 4. Follow-up: - Schedule a follow-up appointment in 4 months to monitor the patient's progress and address any concerns. - Patient to inquire about the need for a referral for the new year. 03/13/2024 Generalized anxiety disorder (ICD-10 - F41.1) stable 1. Insomnia: - Patient reports difficulty sleeping due to playing games on electronic devices and stress related to her daughter's behavior. - Plan: Encourage the patient to establish a bedtime routine that avoids stimulating activities such as playing games on electronic devices. Recommend relaxation techniques, such as deep breathing exercises or counting, to help distract from stressors before bedtime. 2. Mild depression: - Patient reports experiencing mild depression. - Currently on bupropion XL 150 mg. - Plan: Continue bupropion XL 150 mg as prescribed. Monitor the patient's mood and depressive symptoms during follow-up visits. 3. Anxiety: - Patient reports occasional anxiety, but not as severe as before. - Plan: Continue to monitor anxiety levels during follow-up visits. Encourage the patient to practice relaxation techniques and stress management strategies. 4. Follow-up: - Schedule a follow-up appointment in 4 months to monitor the patient's progress and address any concerns. - Patient to inquire about the need for a referral for the new year. 03/13/2024 Panic disorder [episodic paroxysmal anxiety] without agoraphobia (ICD-10 - F41.0) stable 1. Insomnia: - Patient reports difficulty sleeping due to playing games on electronic devices and stress related to her daughter's behavior. - Plan: Encourage the patient to establish a bedtime routine that avoids stimulating activities such as playing games on electronic devices. Recommend relaxation techniques, such as deep breathing exercises or counting, to help distract from stressors before bedtime. 2. Mild depression: - Patient reports experiencing mild depression. - Currently on bupropion XL 150 mg. - Plan: Continue bupropion XL 150 mg as prescribed. Monitor the patient's mood and depressive symptoms during follow-up visits. 3. Anxiety: - Patient reports occasional anxiety, but not as severe as before. - Plan: Continue to monitor anxiety levels during follow-up visits. Encourage the patient to practice relaxation techniques and stress management strategies. 4. Follow-up: - Schedule a follow-up appointment in 4 months to monitor the patient's progress and address any concerns. - Patient to inquire about the need for a referral for the new year. 03/13/2024 Major depressive disorder, recurrent, mild (ICD-10 - F33.0) 1. Insomnia: - Patient reports difficulty sleeping due to playing games on electronic devices and stress related to her daughter's behavior. - Plan: Encourage the patient to establish a bedtime routine that avoids stimulating activities such as playing games on electronic devices. Recommend relaxation techniques, such as deep breathing exercises or counting, to help distract from stressors before bedtime. 2. Mild depression: - Patient reports experiencing mild depression. - Currently on bupropion XL 150 mg. - Plan: Continue bupropion XL 150 mg as prescribed. Monitor the patient's mood and depressive symptoms during follow-up visits. 3. Anxiety: - Patient reports occasional anxiety, but not as severe as before. - Plan: Continue to monitor anxiety levels during follow-up visits. Encourage the patient to practice relaxation techniques and stress management strategies. 4. Follow-up: - Schedule a follow-up appointment in 4 months to monitor the patient's progress and address any concerns. - Patient to inquire about the need for a referral for the new year. 03/13/2024 Other insomnia (ICD-10 - G47.09) practice good sleep hygiene 1. Insomnia: - Patient reports difficulty sleeping due to playing games on electronic devices and stress related to her daughter's behavior. - Plan: Encourage the patient to establish a bedtime routine that avoids stimulating activities such as playing games on electronic devices. Recommend relaxation techniques, such as deep breathing exercises or counting, to help distract from stressors before bedtime. 2. Mild depression: - Patient reports experiencing mild depression. - Currently on bupropion XL 150 mg. - Plan: Continue bupropion XL 150 mg as prescribed. Monitor the patient's mood and depressive symptoms during follow-up visits. 3. Anxiety: - Patient reports occasional anxiety, but not as severe as before. - Plan: Continue to monitor anxiety levels during follow-up visits. Encourage the patient to practice relaxation techniques and stress management strategies. 4. Follow-up: - Schedule a follow-up appointment in 4 months to monitor the patient's progress and address any concerns. - Patient to inquire about the need for a referral for the new year. Plan Of Treatment Medication Medication Name Sig Start Date Stop Date Notes buPROPion HCl ER (XL) 150 MG 1 tablet in the morning Oral Once a day for 90 days Treatment Notes Assessment Notes Generalized anxiety disorder stable Panic disorder [episodic par oxysmal anxiety] without agoraphobia stable Other insomnia practice good sleep hygiene Next Appt Details Follow Up: 4 Months, Reason: f/u depression, anxiety Provider Name:Arturo oseguera, 07/11/2024 04:30:00 PM, [address], [address], [place], [address], Progress Notes * JAI GONZALES MDOB:[birth year] (78 yo F)Acc No.[id number]:03/13/2024 Patient: JAI WEEMS Provider: ZARA CLEMENTS :1945 A ge:78 Y S ex:Female Date:03/13/2024 Address:[address] [place], [place] [id number] Pcp:Salazar Borjas MD Subjective: * Chief Complaints: * R x f/u * HPI: D epression screening: the note is transcribed using speech recognition software. It is a reflection of a visit with the patient. It might have some inaccuracy, including medication names and transcribing errors, though efforts have been made to correct them. Chief complaint - Sleep difficulties, mild depression, occasional anxiety. The patient reports experiencing difficulty sleeping recently, attributing this to playing games on electronic devices before bedtime and feeling aggravated. She also mentions that thoughts about her daughter's behavior contribute to her sleep problems. As a coping mechanism, she attempts to clear her mind and counts numbers to help her fall asleep. The patient acknowledges experiencing mild depression, though she states it is not severe. Her current medication regimen includes bupropion XL 150 mg. She reports occasional anxiety, noting that it occurs less frequently than in the past. Regarding her eye health, the patient recently had an eye exam where the examiner expressed some concerns about veins in her right eye. They advised monitoring the situation, but the patient is not currently worried about her cataract. She undergoes annual eye exams to maintain her eye health. The patient's living situation involves sharing a home with her nephew, who has mental health issues and can be aceves. She manages this by trying to ignore him when he is in a bad mood and not allowing his behavior to negatively affect her. PHQ-9 L ittle interest or pleasure in doing things S everal days, F eeling down, depressed, or hopeless S everal days, T rouble falling or staying asleep, or sleeping too much S everal days, F eeling tired or having little energy M ore than half the days, P oor appetite or overeating S everal days, F eeling bad about yourself or that you are a failure, or have let yourself or your family down N ot at all, T rouble concentrating on things, such as reading the newspaper or watching television M ore than half the days, M oving or speaking so slowly that other people could have noticed; or the opposite, being so fidgety or restless that you have been moving around a lot more than usual N ot at all, T houghts that you would be better off or of hurting yourself in some way N ot at all, T otal Score 8 , I nterpretation M ild Depression. I ntervention D epression Screening Findings P ositve, F ollow-Up for Depression M entnm health treatment assessment, Patient follow-up to return when and if necessary, S uicide Risk Assessment Performed , A dditional Evaluation for Depression P sychiatric interview and evaluation, N david of the standardized tool used for adult depression screening: P atient Health Questionnaire (PHQ-9). D epression Screening: EVERTON-7 (2018 Edition) F eeling nervous, anxious, or on edge?Several days, N ot being able to stop or control worrying S everal days, W orrying too much about different things S everal days, T rouble relaxing M ore than half the days, B ecoming easily annoyed or irritable S everal days, F eeling afraid as if something awful might happen N ot at all, T otal EVERTON-7 Score 6 , I nterpretation of Total ( 5 to 9) Mild. P ast Psychiatric Hospitalizations: bupropion xl 300mg- restless legs trintellix- made anxiety worse paxil prozac lexapro zoloft - dont work. c/o Previous medications. P ast Medication history: bupropion xl 300mg- restless legs trintellix- made anxiety worse paxil prozac lexapro zoloft - dont work. * Medical History: * Surgical History: * Hospitalization/Major Diagno stic Procedure: * Medications: T akingFurosemide 20 MG Tablet Oral Contour Blood Glucose System w/Device Kit In Vitro Losartan Potassium 25 MG Tablet Oral metFORMIN HCl 1000 MG Tablet Oral glipiZIDE 5 MG Tablet Oral Alendronate Sodium 70 MG Tablet Oral lamoTRIgine 25 MG Tablet Oral MICROLET EACH MISCELLANEOUS , Notes to Pharmacist: *Reorder from [facility] for eRx and Interaction Alerts*Levothyroxine Sodium 50 MCG Tablet Oral buPROPion HCl ER (XL) 150 MG Tablet Extended Release 24 Hour 1 tablet in the morning Oral Once a day Taking Furosemide 20 MG Tablet Oral Taking Contour Blood Glucose System w/Device Kit In Vitro Taking Losartan Potassium 25 MG Tablet Oral Taking metFORMIN HCl 1000 MG Tablet Oral Taking glipiZIDE 5 MG Tablet Oral Taking Alendronate Sodium 70 MG Tablet Oral Taking lamoTRIgine 25 MG Tablet Oral Taking MICROLET EACH MISCELLANEOUS , Notes to Pharmacist: *Reorder from [facility] for eRx and Interaction Alerts*Taking Levothyroxine Sodium 50 MCG Tablet Oral Taking buPROPion HCl ER (XL) 150 MG Tablet Extended Release 24 Hour 1 tablet in the morning Oral Once a day Not-TakingmethylPREDNISolone 4 MG Tablet Therapy Pack Oral Medication List reviewed and reconciled with the patientNot-Taking methylPREDNISolone 4 MG Tablet Therapy Pack Oral Medication List reviewed and reconciled with the patient * Allergies: N .K.D.A.no[Allergies Verified] Objective: * Vitals: B P:168/77mm Hg, HR:82/min, Wt:204.6lbs, Wt-k.8 kg, Ht: 64.00 in, Ht-cm: 162.56 cm, BMI:35.12Index, Body Surface Area: 2.05. * Examination: G eneral Examination: - Mental Status Examination: - Patient reports occasional poor sleep due to engaging in stimulating activities before bed and stress related to thoughts about daughter's behavior. - Patient admits to experiencing mild depression but describes it as manageable. - Reports occasional anxiety, which has improved compared to the past. - Patient uses counting as a coping mechanism to manage racing thoughts at night. - Physical Examination: - Eye examination findings noted with concern about veins in the right eye, but overall assessment by the eyelet machine operator was that it looked okay so far. - Patient mentions a pre-existing condition with the left eye, described as having poor vision, and expresses reluctance to pursue cataract surgery for the right eye due to concerns about vision impairment during recovery. - Diagnostic Test Results and Labs: - Recent eye examination noted changes in the right eye's vascular appearance, with a plan for ongoing monitoring. Specific dates and detailed results of the examination are N/A. Assessment: * Assessment: 1. G eneralized anxiety disorder - F41.1 (Primary) 2 . H ypertension, unspecified type - 401.9 3 . P anic disorder [episodic paroxysmal anxiety] without agoraphobia - F41.0 4 . M ajor depressive disorder, recurrent, mild - F33.0 & #160; 5 . O ther insomnia - G47.09 1. Insomnia:- Patient reports difficulty sleeping due to playing games on electronic devices and stress related to her daughter's behavior.- Plan: Encourage the patient to establish a bedtime routine that avoids stimulating activities such as playing games on electronic devices. Recommend relaxation techniques, such as deep breathing exercises or counting, to help distract from stressors before bedtime.2. Mild depression:- Patient reports experiencing mild depression.- Currently on bupropion XL 150 mg.- Plan: Continue bupropion XL 150 mg as prescribed. Monitor the patient's mood and depressive symptoms during follow-up visits.3. Anxiety:- Patient reports occasional anxiety, but not as severe as before.- Plan: Continue to monitor anxiety levels during follow-up visits. Encourage the patient to practice relaxation techniques and stress management strategies.4. Follow-up:- Schedule a follow-up appointment in 4 months to monitor the patient's progress and address any concerns.- Patient to inquire about the need for a referral for the new year. Plan: * Treatment: 2. P anic disorder [episodic paroxysmal anxiety] without agoraphobia Notes: stable 3. M ajor depressive disorder, recurrent, mild Refill buPROPion HCl ER (XL) Tablet Extended Release 24 Hour, 150 MG, 1 tablet in the morning, Oral, Once a day, 90 days, 90 Tablet, Refills 1. 4. O ther insomnia Notes: practice good sleep hygiene * Procedure Codes: 9 6127 BEHAV ASSMT W/SCORE & DOCD/STAND [id number] VISIT COMPLEXITY INHERENT TO ONGOING CARE RELATED TO A PATIENT'S SINGLE, SERIOUS CONDITION OR A COMPLEX CONDITION * Preventive Medicine: Counseling: B P Management: P RE-HYPERTENSIVE FOLLOW-UP PLAN: F ollow-up 2 weeks ____, L IFESTYLE RECOMMENDATION: L ifestyle education Recommended Nonpharmacologic Interventions (Lifestyle Modifications) -Weight ReductionA heart-healthy diet , such as Dietary Approaches to Stop Hypertension (DASH) Eating PlanDietary Sodium RestrictionIncreased Physical ActivityModeration in alcohol consumption, R EFERRAL TO ALTERNATIVE / PRIMARY CARE PROVIDER: R eferral to general physician . * Follow Up: 4 Months (Reason: f/u depression, anxiety) * Billing Information: * Visit Code: 78727 OFFICE OUTPATIENT VISIT 25 MINUTES DETAILED HISTORY AND EXAM/MODERATE MEDICAL DECISION MAKING. * Procedure Codes: 96648 BEHAV ASSMT W/SCORE & DOCD/STAND INSTRUMENT. G2211 VISIT COMPLEXITY INHERENT TO ONGOING CARE RELATED TO A PATIENT'S SINGLE, SERIOUS CONDITION OR A COMPLEX CONDITION. * TING MACHINE CREWMAN Sign off status: Completed true * Provider: ZARA CLEMENTS Date: 1 05/14/2023 Generated for Anai Sheth/Jackie on: 0 05/23/2024 02:59 PM PLANTING MACHINE CREWMAN History and Physical Notes * HPI (History of Present Illness) Category Sub-Category Detail Notes Category Not es Depression screening PHQ-9 Little inte rest or pleasure in doing things: Several days Feeling down, depressed, or hopeless: Se veral days Trouble falling or staying asleep, or sl eeping too much: Several days Feeling tired or having little energy: M ore than half the days Poor appetite or overeating: Several day s Feeling bad about yourself o r that you are a failure, or have let yourself or your family down: Not at all Trouble concentrating on thi ngs, such as reading the newspaper or watching television: More than half the days Moving or speaking so slowly that other people could have noticed; or the opposite, being so fidgety or restless that you have been moving around a lot more than usual: Not at all Thoughts that you would be b jesus off or of hurting yourself in some way: Not at all Total Score: 8 Interpretation: Mild Depression Intervention Depression Screening Findings: P ositve Follow-Up for Depression: [facility] treatment assessment, Patient follow-up to return when and if necessary Suicide Risk Assessment Performed: Additional Evaluation for De pression: Psychiatric interview and evaluation Name of the standardized too l used for adult depression screening:: Patient Health Questionnaire (PHQ-9) Depression Screening EVERTON-7 (2018 Edition) Feelin g nervous, anxious, or on edge: Several days Not being able to stop or control worryi ng: Several days Worrying too much about different things : Several days Trouble relaxing: More than half the day s Becoming easily annoyed or irritable: Se veral days Feeling afraid as if something awful darwin ht happen: Not at all Total EVERTON-7 Score: 6 Interpretation of Total: (5 to 9) Mild Examination Category Sub-Category Detail Notes Category Not es General Examination - Mental Status Examination: - Patient reports occasional poor sleep due to engaging in stimulating activities before bed and stress related to thoughts about daughter's behavior. - Patient admits to experiencing mild depression but describes it as manageable. - Reports occasional anxiety, which has improved compared to the past. - Patient uses counting as a coping mechanism to manage racing thoughts at night. - Physical Examination: - Eye examination findings noted with concern about veins in the right eye, but overall assessment by the eyelet machine operator was that it looked okay so far. - Patient mentions a pre-existing condition with the left eye, described as having poor vision, and expresses reluctance to pursue cataract surgery for the right eye due to concerns about vision impairment during recovery. - Diagnostic Test Results and Labs: - Recent eye examination noted changes in the right eye's vascular appearance, with a plan for ongoing monitoring. Specific dates and detailed results of the examination are N/A.
--- OUTSIDE RECORDS SUMMARY | 2024-05-23 15:00 | XMS_ITS | Continuity of Care Document ---
Author Organization [facility] Address [address] [facility] [address] [place] [address] Phone Care Team Providers Care Horse Doctor Name Role Phone Rosemarie STONE, Amy Unavailable Unavailable Allergies, Adverse Reactions, Alerts Substance Reaction Status Criticality No Known Allergies Active No Inform ation Medications Medication Instructions Dosage Effective Dates (start - stop) Status Comments levothyroxine 75 mcg capsule take 1 capsule by oral route every day 75 MCG - Active Aleve 220 mg tablet take 1 tablet by oral route every 24 hours as needed 220 MG - Active bupropion HCl XL 150 mg 24 hr tablet, extended release take 1 tablet by oral route every day 150 MG - Active Fish Oil 1,000 mg (120 mg-180 mg) capsule take 1 capsule by oral route every day 1 capsule - Active Advil 200 mg tablet take 1 tablet by oral route every 6 hours as needed with food 200 MG - Active losartan 50 mg tablet take 1 tablet by oral route every day 50 MG - Active multivitamin tablet take 1 tablet by oral route every day 1 tablet - Active metformin 1,000 mg tablet take 1 tablet by oral route 2 times every day with morning and evening meals 1000 MG - Active Lexapro 20 mg tablet take 1 tablet by oral route every day 20 MG - No Longer Active glipizide 5 mg tablet take 1 tablet by oral route 2 times every day before meals 5 MG - No Longer Active Procedures Procedure Date SCODI, Retina No Charge Optomap Fundus Photos 2 024 No Charge Refraction Eye Exam & Treatment Fundus Photography W/ Report Eye Exam & Treatment Fundus Photography W/ Report Eye Exam & Treatment No Charge Refraction Fundus Photography W/ Report Office/outpatient Visit, Est No Charge Refraction Fundus Photography W/ Report Eye Exam & Treatment Office/outpatient Visit, Est No Charge Visual Field Examination No Charge Refraction No Charge Optomap Fundus Photos Office/outpatient Visit, Est No Charge Refraction Eye Exam & Treatment Visual Field Examination(s) Office/outpatient Visit, Est No Charge Refraction SCODI, Retina Eye Exam, New Patient Advance Directives Directive Yes / No Effective Date File Name No Information Encounters Encounter Description Practice Location Reason(s) For Visit Diagnoses Date Provider Providers Copied on Encounter [facility], [address] [place] [address] [address], [place], [place], [id number], tel:[phone] [facility] [place] [facility] No Information Oct-3 4 Rosemarie OD Amy. [address] [place] [address], [address], [place], [place], [address], . tel:[phone] [facility], [address] [facility] [address], [place], [place], [address], tel:[phone] [place] diabetic eye exam (chief complaint) Age-related nuclear cataract, right eyePseudophaki a of left eyeType 2 diabetes mellitus without complicationsE piretinal membrane (ERM) of left eyeAmblyopia of left eyeType 2 diab with mild nonp rtnop without mclr edema, r eyeBranch retinal vein occlusion of right eye, unspecified complication statusTrib rtnl vein occlusion, right eye, with macular edema Oct-3 0- 4 [place] Amy. [address], [address], [place], [place], [address], [place]. tel:[phone] Referring Provider: Jesus Dhillon, [address], [place], [address] . tel:[phone] [facility], [facility] [address], [place], [place], [address], [place] tel:[phone] [place] diabetic eye exam (chief complaint) Age-related nuclear cataract, right eyePseudophaki a of left eyeType 2 diabetes mellitus without complicationsE piretinal membrane (ERM) of left eyeAmblyopia of left eye Oct-2 3 Rosemarie OD Amy. [facility] [address], [address], [place], [place], [address], [place]. tel:[phone] Referring Provider: Jesus Dhillon, [address], [place], [address] . tel:[phone] [facility], [facility] [employer] [address], [place], [place], [address], [place] tel:[phone] [place] diabetic eye exam (chief complaint) Age-related nuclear cataract, right eyeEpiretinal membrane (ERM) of left eyeType 2 diabetes mellitus without complications Beni-2 2 Warren Lee. [address], [address], [place], [place], [address], [place]. tel:[phone] Referring Provider: Jesus Dhillon, [address], [place], [address] . tel:[phone] [place] [facility] [place] [facility] [employer] [address], [place], [place], [address], [place] tel:[phone] [place] Cataract (chief complaint) Epiretinal membrane (ERM) of left eyePseudophaki a of left eyeAge-related nuclear cataract, right eyeType 2 diabetes mellitus without complications 1 Warren Lee. [address], [address], [place], [place], [address], [place]. tel:[phone] Referring Provider: Jesus Dhillon, [address] [facility] [address], [place], [address] . tel:[phone] [facility], [address], [place], [place], [address], [place] tel:[phone] [place] Complete Exam (chief complaint) Age-related nuclear cataract, right eyePseudophaki a of left eyeEpiretinal membrane (ERM) of left eyeRPE mottling of maculaType 2 diabetes mellitus without complicationsP unctate keratitis, bilateralCrani al third nerve paralysis, left 1 Warren Lee. [address] [facility], [place], [place], [address], [place]. tel:[phone] Referring Provider: Jesus Dhillon, [address] [facility] [address], [place], [address] . tel:[phone] [place]pa [place], [facility] [place] [address], [place], [place], [address], [place] tel:[phone] [place] pain and double [place] (chief complaint) Cranial third nerve paralysis, leftPtosis, left eyelidAfferent pupillary defect of left eye 0 Warren Lee. [address] [facility], [place], [place], [address], [place]. tel:[phone] Referring Provider: Jesus Dhillon, [address], [place], [address] . tel:[phone] [place]pa [place], [facility] [address], [place], [place], [address], [place] tel:[phone] [place] Cataract Eval (chief complaint) Age-related nuclear cataract, right eyeAmblyopia of left eyePseudophaki a of left eyeType 2 diabetes mellitus without complications 0 Warren Lee. [address], [address], [place], [place], [address], [place]. tel:[phone] Referring Provider: Jesus Dhillon, [address], [place], [address] . tel:[phone] [facility], [address], [place], [place], [address], tel:[phone] [place] Complete Exam (chief complaint) Amblyopia of left eyeType 2 diabetes mellitus without complicationsE piretinal membrane (ERM) of left eyePunctate keratitis, left eyePseudophaki a of left eyeAge-related nuclear cataract, right eyeRPE mottling of maculaPallor of optic disc of left eyeVisual disturbance 0 Warren Lee. [address], [address], [place], [place], [address], [place]. tel:[phone] Referring Provider: Jesus Dhillon, [address], [place], [address] . tel:[phone] [facility], [address], [place], [place], [address], [place] [phone] [facility] [place] [facility] No Information 9 Warren Lee. [address], [facility] [address], [place], [place], [address], [place]. tel:[phone] Office/outpa tient Visit, [facility], [address], [place], [place], [address], [place] [phone] [place] Follow up visit (chief complaint) Subjective visual disturbance 8 Warren Lee. [address] [facility], [facility] [place], [address], . tel:[phone] Referring Provider: Jesus Dhillon, [address] [facility] [place], [address] . tel:[phone] [facility], [address] [place] [address] [address], [place], [address], [phone] [place] Complete Exam (chief complaint) No Information 8 Warren Lee. [address] [facility], [facility] [place], [address], . tel:[phone] Referring Provider: Jesus Dhillon, [address] [place], [address] . tel:[phone] [facility], [address] [place] [address] [address], [place], [address], [phone] [place] No Information 8 Warren Lee. [address] [facility], [facility] [place], [address], . tel:[phone] Family History Family Member Type Diagnosis Age At Onset Father Problem (finding) Diabetes mellitus Payers Payer name Insurance type Covered libertarian ID Sunnyana rosa kirtimitzy(s) [employer] Claims [id number] Social History Type Description Quantity Date Captured Comments Alcohol Use Details Unknown Caffeine Use Details Unknown Tobacco Use Status No Information Smoking Status No Information Sex Female Chief Complaint And Reason For Visit No Information Reason For Referral Reason For Referral No Information Plan Of Treatment Date Type Action Status Goal Tobacco cessation counseling completed Referral Ordered: Sigrid Cardona -[facility] : Ophthalmology (related to Subjective visual disturbance) ordered Referral Ordered: Ayesha Keene -[facility] : Ophthalmology (related to Subjective visual disturbance) ordered Referral Referred To: Ayesha Keene [address] [place], [phone] Ordered: Referrals: [facility] : Ophthalmology. Ayesha Keene. Evaluate and treat ordered Referral Referred To: Sigrid Cardona MD [address] [place] [address], [phone] Ordered: Referrals: Ophthalmology. Sigrid Cardona MD ordered Referral Referred To: Sigrid Cardona [address] [place] [address], [phone] Ordered: Referrals: [facility] : Ophthalmology. Sigrid Cardona. Evaluate and treat ordered Patient Education Learning About Retinal Vein Occlusion completed Patient Education Cataracts: Care Instruc tions completed Patient Education The Eye: Anatomy Sketch completed Patient Education Type 2 Diabetes: Care I nstructions completed Patient Education Cataracts: Care Instruc tions completed Patient Education Learning About Ptosis c ompleted Patient Education Cataracts: Care Instruc tions completed Patient Education Cataracts: Care Instruc tions completed History Of Present Illness Encounter Date Complaint History Of Prese nt Illness diabetic eye exam The 78 year ol d patient presents for a complete Type II diabetic exam ou. Patient is pseudo OS and yag cap OS. Patient is Amblyopic OS and hx of AION OS. BS was 161 this am and last A1C was about 6 and PCP Salazar Borjas treats her DM. Patient states it is harder to read small print. Patient states sometimes OS has pain. diabetic eye exam The 77 year ol d patient presents for a complete Type II diabetic exam ou. Patient is pseudo OS with yag cap OS. Patient is Amblyopic OS and hx of AION OS. Patient doesn't know what BS is and PCP treats DM. Last A1C was 6.8. Patient denies any changes in vision ou. diabetic eye exam The 75 year ol d patient presents for a complete Type II diabetic exam ou. Patient is pseudo OS with yag cap OS. Patient has hx of NAION OS, ERM OS and is Amblyopic OS. BS was 159 this am and last A1C was 7.1 and PCP treats DM. Patient denies any vision ou. Cataract The 74 year old female presents for evaluation of Cataract in the right eye. Hx of Cataract OD, PCIOL OS, YAG PC OS, Amblyopia OS, RPE mottling OU, ERM OU, SPK OU, Optic Atrophy OU, NAION OS, and CNIII Palsy OU. Pt is NIDDM II x 15 yrs, followed by PCP, and she is unsure of A1c. Pt states vision is clear and stable OU at distance and near x 6 mos. Pt still not wanting Cataract Sx at this time. Complete Exam The 74 year old female presents for evaluation of Complete Exam in the right eye and left eye. Hx of PCIOL OS, YAG PC OS, Amblyopia OS, CAT OD, ERM OU, Optic Atrophy OU, NAION OS, and CNIII Palsy OU. Pt is NIDDM II x 15 yrs, followed by PCP, pt reports BS was 175 this am and A1C was 6 in November. Pt reports OS>OD itches and reid, x yrs, she is thinking it's winter allergies. Pt reports she doesn't use any gtts, OU. Pt reports she is not having the diplopia anymore and she doesn't think she needs CE yet, OD. pain and double VA The 73 year o ld female presents for evaluation of pain and double VA in the left eye. Hx of Amblyopia OS, PCIOL OS, YAG PC OS, Cataract OD, ERM OU, Optic Atrophy OU, and NAION OS. Patient states Monday night she started having pain in her left eye and then got a headache. Patient states Monday she started having double VA, only with both eyes opened, and images side by side. BS checked this am @ 170. Cataract Eval The 73 year old female presents for evaluation of Cataract Eval in the right eye. 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 DM2, last A1c 6.0-7.0, tested last year, BS 178 as of this morning, followed by Dr. Soria. Pt reports stable vision since last visit in current spec Rx. Pt wants to hold off on CE until she feels OD vision is worse. Pt reports trouble driving at night, she sees glare from oncoming headlights at night OD. Complete Exam The 73 year old female presents for evaluation of Complete Exam in the right eye and left eye. 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 DM2, last A1c 7.0, BS 159 as of this morning, followed by Dr. Soria. Pt report stable vision in current spec Rx. Pt reports tearing and itching OU since winter started. Pt does not take gtts. Follow up visit The 71 year old female presents for a 1 month VF and IOP check. Patient has been using Visine because eyes feel gritty. Complete Exam The 71 year old female presents for an complete exam (2nd opinion). Patient is a Type II diabetic (15 years) and BS was 158 this am. Patient states she had cataract sx OS in 03/26 and laser in 07/26 OS and c/o since then she has a shadow in OS. 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 Patient states her OD is doing ok. Functional Status Date Functional Assessmen t No Information Instructions Date Instruction Additional Kevynr nile Impression/Plan Impression/Plan Impression/Plan Impression/Plan Impression/Plan Impression/Plan Impression/Plan Impression/Plan Impression/Plan Impression/Plan Assessments Type Assessment Date No Information Patient Care Teams Name Effective Dates (start - stop) Status Members No Information
--- OUTSIDE RECORDS SUMMARY | 2024-05-23 15:00 | XMS_ITS ---
Author Organization [facility] [employer] Address [address] [place] [address] Care Team Providers Care Safety Admin Assistant Name Role Phone Salazar Borjas MD Primary Care Provider Arturo Carpenter Unavailable [phone] Medications Medication SIG (Take, Route, Frequency, Duration) Notes Start Date End Date Status Levothyroxine Sodium 50 MCG Oral 08/23/2023 Active MICROLET MISCELLANEOUS *Reorder from [employer] for eRx and Interaction Alerts* 08/23/2023 Active methylPREDNISolone 4 MG Oral 08/23/2023 Active lamoTRIgine 25 MG Oral 08/23/2023 A ctive Alendronate Sodium 70 MG Oral 08/23/2023 Active Losartan Potassium 25 MG Oral 08/23/2023 Active Contour Blood Glucose System w/Device In Vitro 08/23/2023 Active Furosemide 20 MG Oral 08/23/2023 Ac tive glipiZIDE 5 MG Oral 08/23/2023 Acti ve metFORMIN HCl 1000 MG Oral 08/23/2023 Active buPROPion HCl ER (XL) 150 MG 1 tablet in the morning Oral Once a day for 90 days 08/23/2023 Active Social History Sex Assigned At : Social History Observation Description Sex Assigned At Female Encounters Encounter Location Date Provider Diagnosis [facility] [employer] [address] [place] [address] 11/22/2023 Arturo Woo Generalized anxiety disorder F41.1 ; Panic disorder [episodic paroxysmal anxiety] without agoraphobia F41.0 ; Major depressive disorder, recurrent, mild F33.0 and Other insomnia G47.09 Assessments Encounter Date Diagnosis (ICD Code) Assessment Notes Treatment Notes Treatment Clinical Notes Section Notes 11/22/2023 Generalized anxiety disorder (ICD-10 - F41.1) 1. Depression: - Patient reports occasional depressive symptoms, mostly situational. Overall, depression appears to be stable. Plan: - Continue Bupropion XL 150 mg once daily. Monitor for any changes in mood or worsening of symptoms. 2. Anxiety: - Patient experienced a recent anxiety episode, likely situational due to family stress. Anxiety is not a frequent issue. Plan: - Encourage patient to engage in stress-reducing activities and seek support when needed. Monitor for any increase in anxiety symptoms. 3. Sleep disturbance: - Patient reports difficulty sleeping for the past 2-3 nights, likely due to poor sleep hygiene (watching TV, playing games on phone, staying up late). Plan: - Educate patient on the importance of good sleep hygiene, including establishing a regular sleep schedule, limiting screen time before bed, and creating a relaxing bedtime routine. Encourage patient to monitor sleep patterns and report any persistent issues. 4. Family stress: - Patient is experiencing stress related to their nephew's living situation and behavior. This may be contributing to the patient's anxiety and depressive symptoms. Plan: - Encourage patient to set boundaries and consider discussing long-term plans with their nephew. Recommend seeking family therapy or support groups if needed. 5. Medication refill: - Patient is due for a refill of Bupropion XL 150 mg. Plan: - Refill medication and schedule a follow-up appointment in three months to monitor progress and address any concerns. 11/22/2023 Panic disorder [episodic paroxysmal anxiety] without agoraphobia (ICD-10 - F41.0) 1. Depression: - Patient reports occasional depressive symptoms, mostly situational. Overall, depression appears to be stable. Plan: - Continue Bupropion XL 150 mg once daily. Monitor for any changes in mood or worsening of symptoms. 2. Anxiety: - Patient experienced a recent anxiety episode, likely situational due to family stress. Anxiety is not a frequent issue. Plan: - Encourage patient to engage in stress-reducing activities and seek support when needed. Monitor for any increase in anxiety symptoms. 3. Sleep disturbance: - Patient reports difficulty sleeping for the past 2-3 nights, likely due to poor sleep hygiene (watching TV, playing games on phone, staying up late). Plan: - Educate patient on the importance of good sleep hygiene, including establishing a regular sleep schedule, limiting screen time before bed, and creating a relaxing bedtime routine. Encourage patient to monitor sleep patterns and report any persistent issues. 4. Family stress: - Patient is experiencing stress related to their nephew's living situation and behavior. This may be contributing to the patient's anxiety and depressive symptoms. Plan: - Encourage patient to set boundaries and consider discussing long-term plans with their nephew. Recommend seeking family therapy or support groups if needed. 5. Medication refill: - Patient is due for a refill of Bupropion XL 150 mg. Plan: - Refill medication and schedule a follow-up appointment in three months to monitor progress and address any concerns. 11/22/2023 Major depressive disorder, recurrent, mild (ICD-10 - F33.0) 1. Depression: - Patient reports occasional depressive symptoms, mostly situational. Overall, depression appears to be stable. Plan: - Continue Bupropion XL 150 mg once daily. Monitor for any changes in mood or worsening of symptoms. 2. Anxiety: - Patient experienced a recent anxiety episode, likely situational due to family stress. Anxiety is not a frequent issue. Plan: - Encourage patient to engage in stress-reducing activities and seek support when needed. Monitor for any increase in anxiety symptoms. 3. Sleep disturbance: - Patient reports difficulty sleeping for the past 2-3 nights, likely due to poor sleep hygiene (watching TV, playing games on phone, staying up late). Plan: - Educate patient on the importance of good sleep hygiene, including establishing a regular sleep schedule, limiting screen time before bed, and creating a relaxing bedtime routine. Encourage patient to monitor sleep patterns and report any persistent issues. 4. Family stress: - Patient is experiencing stress related to their nephew's living situation and behavior. This may be contributing to the patient's anxiety and depressive symptoms. Plan: - Encourage patient to set boundaries and consider discussing long-term plans with their nephew. Recommend seeking family therapy or support groups if needed. 5. Medication refill: - Patient is due for a refill of Bupropion XL 150 mg. Plan: - Refill medication and schedule a follow-up appointment in three months to monitor progress and address any concerns. 11/22/2023 Other insomnia (ICD-10 - G47.09) 1. Depression: - Patient reports occasional depressive symptoms, mostly situational. Overall, depression appears to be stable. Plan: - Continue Bupropion XL 150 mg once daily. Monitor for any changes in mood or worsening of symptoms. 2. Anxiety: - Patient experienced a recent anxiety episode, likely situational due to family stress. Anxiety is not a frequent issue. Plan: - Encourage patient to engage in stress-reducing activities and seek support when needed. Monitor for any increase in anxiety symptoms. 3. Sleep disturbance: - Patient reports difficulty sleeping for the past 2-3 nights, likely due to poor sleep hygiene (watching TV, playing games on phone, staying up late). Plan: - Educate patient on the importance of good sleep hygiene, including establishing a regular sleep schedule, limiting screen time before bed, and creating a relaxing bedtime routine. Encourage patient to monitor sleep patterns and report any persistent issues. 4. Family stress: - Patient is experiencing stress related to their nephew's living situation and behavior. This may be contributing to the patient's anxiety and depressive symptoms. Plan: - Encourage patient to set boundaries and consider discussing long-term plans with their nephew. Recommend seeking family therapy or support groups if needed. 5. Medication refill: - Patient is due for a refill of Bupropion XL 150 mg. Plan: - Refill medication and schedule a follow-up appointment in three months to monitor progress and address any concerns. Plan Of Treatment Medication Medication Name Sig Start Date Stop Date Notes buPROPion HCl ER (XL) 150 MG 1 tablet in the morning Oral Once a day for 90 days 08/23/2023 Next Appt Details Follow Up: 3 Months, Reason: f/u depression, anxiety Provider Name:Arturo oseguera, 07/11/2024 04:30:00 PM, [address], [facility] [address], [place], [address], Progress Notes * JAI GONZALES MDOB:[birth year] (77 yo F)Acc No.[id number]:11/22/2023 Patient: JAI WEEMS Provider: ZARA CLEMENTS :1945 A ge:77 Y S ex:Female Date:11/22/2023 Address:[address] [place] [address], [facility] Subjective: * Chief Complaints: * * HPI: P ast Psychiatric Hospitalizations: bupropion xl 300mg- restless legs trintellix- made anxiety worse paxil prozac lexapro zoloft - dont work Chief complaint - Occasional depressive symptoms, anxiety. the note is transcribed using speech recognition software. It is a reflection of a visit with the patient. It might have some inaccuracy, including medication names and transcribing errors, though efforts have been made to correct them. The patient reports experiencing occasional depressive symptoms, which seem to be triggered by specific situations, such as a recent incident involving their nephew. They also experience anxiety, which they describe as situational and not occurring too frequently. The patient mentions a recent episode that may have been a panic attack or anxiety related to their nephew's behavior. Regarding living situation, the patient is considering selling their house to move to a more accessible living arrangement due to difficulty navigating stairs for laundry and other tasks. Their nephew, who has been living with them since November 2020, assists with day worker and contributes financially by paying water and rand sewer bills and allowing the patient to use his link card for groceries. The patient expresses concern about their nephew's health, including hidradenitis suppurativa and possible lupus, and suggests that he may need psychiatric care and medication adjustments. The patient's sleep has been disrupted for the past two to three nights, which they attribute to poor bedtime habits, including watching TV and playing games on their phone. They acknowledge that they can sleep during the day if needed. The patient confirms that they are currently taking Bupropion XL 150 mg once daily. 77 year old female presents with c/o Previous medications. * Medical History: * Medications: T aking Furosemide 20 MG Tablet Oral , Taking Contour Blood Glucose System w/Device Kit In Vitro , Taking Losartan Potassium 25 MG Tablet Oral , Taking metFORMIN HCl 1000 MG Tablet Oral , Taking glipiZIDE 5 MG Tablet Oral , Taking buPROPion HCl ER (XL) 150 MG Tablet Extended Release 24 Hour Oral , Taking Alendronate Sodium 70 MG Tablet Oral , Taking lamoTRIgine 25 MG Tablet Oral , Taking methylPREDNISolone 4 MG Tablet Therapy Pack Oral , Taking MICROLET EACH MISCELLANEOUS , Notes to Pharmacist: *Reorder from [facility] for eRx and Interaction Alerts*, Taking Levothyroxine Sodium 50 MCG Tablet Oral Objective: * Vitals: * Examination: G eneral Examination: - Mental Status Examination: - Patient reports intermittent depressive symptoms, triggered by stressful events. - Describes a recent potential panic or anxiety attack. - Sleep disturbances noted, primarily attributed to poor sleep hygiene. - No continuous or pervasive mood disturbances reported; symptoms appear situational. Assessment: * Assessment: 1. G eneralized anxiety disorder - F41.1 (Primary) 2 . P anic disorder [episodic paroxysmal anxiety] without agoraphobia - F41.0 3 . M ajor depressive disorder, recurrent, mild - F33.0 4 . O ther insomnia - G47.09 1. Depression:- Patient repo rts occasional depressive symptoms, mostly situational. Overall, depression appears to be stable.Plan:- Continue Bupropion XL 150 mg once daily. Monitor for any changes in mood or worsening of symptoms.2. Anxiety:- Patient experienced a recent anxiety episode, likely situational due to family stress. Anxiety is not a frequent issue.Plan:- Encourage patient to engage in stress- reducing activities and seek support when needed. Monitor for any increase in anxiety symptoms.3. Sleep disturbance:- Patient reports difficulty sleeping for the past 2-3 nights, likely due to poor sleep hygiene (watching TV, playing games on phone, staying up late).Plan:- Educate patient on the importance of good sleep hygiene, including establishing a regular sleep schedule, limiting screen time before bed, and creating a relaxing bedtime routine. Encourage patient to monitor sleep patterns and report any persistent issues.4. Family stress:- Patient is experiencing stress related to their nephew's living situation and behavior. This may be contributing to the patient's anxiety and depressive symptoms.Plan:- Encourage patient to set boundaries and consider discussing long-term plans with their nephew. Recommend seeking family therapy or support groups if needed.5. Medication refill:- Patient is due for a refill of Bupropion XL 150 mg.Plan:- Refill medication and schedule a follow-up appointment in three months to monitor progress and address any concerns. Plan: * Treatment: * Procedure Codes: G 2211 VISIT COMPLEXITY INHERENT TO ONGOING CARE RELATED TO A PATIENT'S SINGLE, SERIOUS CONDITION OR A COMPLEX CONDITION * Follow Up: 3 Months (Reason: f/u depression, anxiety) * Billing Information: * Visit Code: 08731 OFFICE OUTPATIENT VISIT 25 MINUTES DETAILED HISTORY AND EXAM/MODERATE MEDICAL DECISION MAKING. * Procedure Codes: G2211 VISIT COMPLEXITY INHERENT TO ONGOING CARE RELATED TO A PATIENT'S SINGLE, SERIOUS CONDITION OR A COMPLEX CONDITION. * Sign off status: Completed true * Provider: ZARA CLEMENTS Date: 0 11/22/2023 Generated for Anai newell/Kailey/Jackie on: 0 05/23/2024 02:59 PM DESKTOP OPERATOR History and Physical Notes * Examination Category Sub-Category Detail Notes Category Not es General Examination - Mental Status Examination: - Patient reports intermittent depressive symptoms, triggered by stressful events. - Describes a recent potential panic or anxiety attack. - Sleep disturbances noted, primarily attributed to poor sleep hygiene. - No continuous or pervasive mood disturbances reported; symptoms appear situational.
--- OUTSIDE RECORDS SUMMARY | 2024-05-23 15:00 | XMS_ITS ---
Author Organization [facility] [employer] Address [address] [place] [address] Care Team Providers Care Computer Applications Developer Name Role Phone Salazar Borjas MD Primary Care Provider Arturo Carpenter Unavailable [phone] Migration, Provider Unavailable Unavailable REASON FOR VISIT EMR-Evan Medications Medication SIG (Take, Route, Frequency, Duration) Notes Start Date End Date Status Contour Blood Glucose System w/Device In Vitro 08/23/2023 Active Alendronate Sodium 70 MG Oral 08/23/2023 Active metFORMIN HCl 1000 MG Oral 08/23/2023 Active buPROPion HCl ER (XL) 150 MG Oral 08/23/2023 Active Levothyroxine Sodium 50 MCG Oral 08/23/2023 Active Furosemide 20 MG Oral 08/23/2023 Ac tive methylPREDNISolone 4 MG Oral 08/23/2023 Active MICROLET MISCELLANEOUS *Reorder from [employer] for eRx and Interaction Alerts* 08/23/2023 Active Losartan Potassium 25 MG Oral 08/23/2023 Active glipiZIDE 5 MG Oral 08/23/2023 Acti ve lamoTRIgine 25 MG Oral 08/23/2023 A ctive Social History Sex Assigned At : Social History Observation Description Sex Assigned At Female Encounters Encounter Location Date Provider Diagnosis [facility] [employer] [address] [place] [address] 08/27/2023 Provider Migration Plan Of Treatment Next Appt Details Provider Name:Arturo oseguera, 07/11/2024 04:30:00 PM, [address], [place], [address], Progress Notes * JAI GONZALES MDOB:[birth year] (77 yo F)Acc No.[id number]:08/27/2023 Patient: JAI WEEMS :1945 A ge:77 Y S ex:Female Address:[address] [place] [address] Subjective: * Chief Complaints: * E MR-Evan * Medical History: * Audit Clerk History: M igrated GYNHistory M igrated GYNHistory:: Abnormal Pap: N Modified Date:03/30/2023,Age at First Child: 17 Modified Date:03/30/2023,Age at Menarche: 14 Modified Date:03/30/2023,Date of Last Colonoscopy: 04/24/2013 Modified Date:07/13/2023,Date of Last Mammogram: 07/13/2022 Modified Date:07/13/2023,Date of Last Pap Smear: 04/24/2008 Modified Date:07/13/2023,LMP: Unknown Modified Date:03/30/2023,Sexual Problems: N Modified Date:03/30/2023,Sexually Active: N Modified Date:03/30/2023, .? * Surgical History: X capsl ctrc rmvl cplx wo ecp (93032) Hysterectomy/revise vagina (27923) Removal of ovary(s) (56679) Removal of gallbladder (60548) * Hospitalization/Major Diagno stic Procedure: * Family History: U nspecified Relation: Attention deficit hyperactivity disorder, Notes: Nephew , Bipolar disorder, Notes: Nephew , Family history of substance abuse, Notes: Grandson , Family history of cancer, Notes: Spouse . F ather: Family history of cancer , Arthritis . M other: Family history of cancer , Bipolar disorder . S ister: Diabetes mellitus . S on: Diabetes mellitus . D aughter: Family history of cancer , Hypothyroidism . * Social History: M igrated Social History: M igrated Social History: Alcohol Intake: Occasional 07/18/2018,Tobacco Years: Former smoker 07/18/2018,Smoking Status: 16 05/29/2023. * Medications: T akingFurosemide 20 MG Tablet Oral Contour Blood Glucose System w/Device Kit In Vitro Losartan Potassium 25 MG Tablet Oral metFORMIN HCl 1000 MG Tablet Oral glipiZIDE 5 MG Tablet Oral buPROPion HCl ER (XL) 150 MG Tablet Extended Release 24 Hour Oral Alendronate Sodium 70 MG Tablet Oral lamoTRIgine 25 MG Tablet Oral methylPREDNISolone 4 MG Tablet Therapy Pack Oral MICROLET EACH MISCELLANEOUS , Notes to Pharmacist: *Reorder from [facility] for eRx and Interaction Alerts*Levothyroxine Sodium 50 MCG Tablet Oral Taking Furosemide 20 MG Tablet Oral Taking Contour Blood Glucose System w/Device Kit In Vitro Taking Losartan Potassium 25 MG Tablet Oral Taking metFORMIN HCl 1000 MG Tablet Oral Taking glipiZIDE 5 MG Tablet Oral Taking buPROPion HCl ER (XL) 150 MG Tablet Extended Release 24 Hour Oral Taking Alendronate Sodium 70 MG Tablet Oral Taking lamoTRIgine 25 MG Tablet Oral Taking methylPREDNISolone 4 MG Tablet Therapy Pack Oral Taking MICROLET EACH MISCELLANEOUS , Notes to Pharmacist: *Reorder from [facility] for eRx and Interaction Alerts*Taking Levothyroxine Sodium 50 MCG Tablet Oral Objective: * Vitals: * Physical Examination: Assessment: Plan: * Treatment: * Procedure Codes: * true * Date: Generated for Anai newell/Kailey/Jackie on: 0 05/23/2024 02:59 PM FLOWER PLANTER
--- OUTSIDE RECORDS SUMMARY | 2024-05-23 15:00 | XMS_ITS | Referral Summary ---
Author Organization [facility] Address [address] [place] [address] Care Team Providers Care Roustabout Hand Name Role Phone Elie Soria DO Primary Care Provider [phone] Source Comments [facility],non-owned Affiliates and Associated Physician Practices is amultiple site organization consisting of ambulatory clinics and hospital sitesin [place], [place], [place] and [place]. This disclosure is being madepursuant to the Care Everywhere program and may not contain all information available regarding this patient. 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
--- OUTSIDE RECORDS SUMMARY | 2024-05-23 15:00 | XMS_ITS | Clinical Summary ---
Author Organization [facility] Address [address] [place] [address] Care Team Providers Care Plant Puller Name Role Phone Elie Soria DO Primary Care Provider [phone] Source Comments [facility],non-owned Affiliates and Associated Physician Practices is amultiple site organization consisting of ambulatory clinics and hospital sitesin [place], [place], [place] and [place]. This disclosure is being madepursuant to the Care Everywhere program and may not contain all information available regarding this patient. Last updated 17.[facility] [employer] Allergies No known active allergies Active Problems [...] Orientation Not on file Plan of Treatment Health Maintenance Due Date Last Done Comments BONE DENSITY TESTING 1945 DTAP/TDAP/TD VACCINES (1 - Tdap) 12/27/1962 PNEUMOCOCCAL VACCINE 50+ (1 of 1 - PCV) 12/27/1993 ZOSTER VACCINE (1 of 2) 12/27/1993 Respiratory Syncytial Virus (RSV) Vaccine Pt: or over 60 yrs (1 - 1-dose 75+ series) 12/27/2018 COVID-19 VACCINE ( - 2023-2 5 season) 2023 INFLUENZA VACCINE (#1) 2023 DEPRESSION SCREENING 04/10/2024 MEDICARE AWV CALENDAR YEAR 2024 HEPATITIS B VACCINE Aged Out No longe r eligible based on patient's age to complete this topic HIB VACCINE Aged Out No longer eligi ble based on patient's age to complete this topic HPV VACCINE Aged Out No longer eligi ble based on patient's age to complete this topic MENINGOCOCCAL (Group B) VACCINE Aged Out No longer eligible based on patient's age to complete this topic MENINGOCOCCAL VACCINE Aged Out No sumanth jama eligible based on patient's age to complete this topic Care Teams Plant Puller Relationship Specialty Start Date End Date Elie Soria DO [address] [place] [address] PCP - General 01/10/18
--- OUTSIDE RECORDS SUMMARY | 2024-05-23 15:00 | XMS_ITS | Patient Health Summary ---
Author Organization [facility] Address [address] [place] [address] Care Team Providers Care Pickle Pumper Name Role Phone Elie Soria DO Primary Care Provider [phone] Note from [facility] [place],non-owned Affiliates and Associated Physician Practices is amultiple site organization consisting of ambulatory clinics and hospital sitesin [place] and [place]. This disclosure is being madepursuant to the Care Everywhere program and may not contain all information available regarding this patient. Last updated 17.[facility] [employer] Allergies No known active allergies Active Problems [...] on file Sexual Orientation Not on file Procedures * CT ORBITS WO CONTRAST(Performed 07/25/2018) Performed for Optic atrophy, left eye * CREATININE BLOOD - POCT (IP) [facility](Performed 07/25/2018) Performed for Optic atrophy, left eye * OPH COLOR FUNDUS PHOTOGRAPHY [facility](Performed 04/18/2018) Performed for Blurred vision, bilateral, Partially accommodative esotropia, Amblyopia of eye, left * OPH VISUAL FIELD TEST [facility](Performed 04/18/2018) Performed for Blurred vision, bilateral * OPH OCT TEST [facility](Performed 04/18/2018) Performed for Blurred vision, bilateral, Partially accommodative esotropia, Amblyopia of eye, left Results * CT ORBITS WO CONTRAST (07/25/2018 2:16 PM CDT) Anatomical Region Laterality Modality Head Computed Tomogra phy 07/25/2018 2:31 PM CDT Impressions 07/25/2018 2:42 PM CDT IMPRESSION: Asymmetrically smaller size of the left optic nerve sheath complex compared to the right. No other abnormality of the orbits. Dictated by Liseth Alvarenga MD (vice president talent management). I, Dr. SONAM BARBA have personally reviewed and interpreted this examination/study. This report was electronically signed by SONAM BARBA on 07/25/2018 2:42 PM . Narrative 07/25/2018 2:42 PM CDT EXAMINATION: Computed tomography (CT) of the maxillofacial bones, orbits, and paranasal sinuses without contrast HISTORY: Optic atrophy TECHNIQUE: CT of the maxillofacial bones, orbits, and paranasal sinuses was performed without contrast according to standard protocol. COMPARISON: No prior study is available for comparison at the time of this dictation. FINDINGS: There is asymmetrically smaller size of the left optic nerve sheath complex compared to the right. The orbits are otherwise unremarkable. The superior ophthalmic veins are not enlarged. The cavernous sinuses do not appear expanded on this noncontrast study. The sella is normal in size. There is no sellar or suprasellar mass. The paranasal sinuses and tympanomastoid cavities are aerated. Wall calcification of the cavernous carotid arteries is noted. The visualized intracranial contents are otherwise within normal limits. Procedure Note Sonam Barba MD - 07/25/2018 EXAMINATION: Computed tomography (CT) of the maxillofacial bones,orbits, and paranasal sinuses without contrast HISTORY: Optic atrophy TECHNIQUE: CT of the maxillofacial bones, orbits, and paranasal sinuses was performed without contrast according to standard protocol. COMPARISON: No prior study is available for comparison at the time ofthis dictation. FINDINGS: There is asymmetrically smaller size of the left optic nerve sheath complex compared to the right. The orbits are otherwise unremarkable.The superior ophthalmic veins are not enlarged. The cavernous sinuses do not appear expanded on this noncontrast study. The sella is normal in size. There is no sellar or suprasellar mass. The paranasal sinuses and tympanomastoid cavities are aerated. Wall calcification of the cavernous carotid arteries is noted. The visualized intracranial contents are otherwise within normal limits. IMPRESSION: Asymmetrically smaller size of the left optic nerve sheath complex compared to the right. No other abnormality of the orbits. Dictated by Liseth Alvarenga MD (vice president talent management). I, Dr. SONAM BARBA have personally reviewed and interpreted this examination/study. This report was electronically signed by SONAM BARBA on 07/25/2018 2:42PM . Yvonne Ferrari MD CT ORDERABLES * (ABNORMAL) CREATININE BLOOD - POCT (IP) [facility] (07/25/2018 1:49 PM CDT) Creatinine POCT 1.42(A) 0.3 - 1.3 mg/dL [facility] POCT TESTING eGFR POCT 38(A) 60 ml/min [facility] POCT TESTING Blood BLOOD SPECIMEN / Unknown 07/25/2018 1:49 PM CDT Ayesha Keene MD LAB - POINT OF CARE ORDERABLES [facility] POCT TESTING [address] [place] [address] * OPH COLOR FUNDUS PHOTOGRAPHY [facility] (04/18/2018 1:08 PM LEARNING SUPPORT SERVICES DIRECTOR) Anatomical Region Laterality Modality Other 04/18/2018 1:08 PM LEARNING SUPPORT SERVICES DIRECTOR Ayesha Keene MD OPHTHALMOLOGY SERVIC ES ORDERABLES * OPH VISUAL FIELD TEST [facility] (04/18/2018 10:47 AM LEARNING SUPPORT SERVICES DIRECTOR) Anatomical Region Laterality Modality Other 04/18/2018 10:4 7 AM LEARNING SUPPORT SERVICES DIRECTOR Ayesha Keene MD OPHTHALMOLOGY SERVIC ES ORDERABLES * OPH OCT TEST [facility] (04/18/2018 12:00 AM LEARNING SUPPORT SERVICES DIRECTOR) Anatomical Region Laterality Modality Other 04/18/2018 Ayesha Keene MD OPHTHALMOLOGY SERVIC ES ORDERABLES Care Teams Pickle Pumper Relationship Specialty Start Date End Date Elie Soria DO [address] [facility] [address] [place] [address] PCP - General 01/10/18
== END 2024-05-23 14:58 | disposition home or self-care (01) ==
LOC: ANHIMG 14:58
PROVIDERS: PCP Family Medicine; Visit Provider Nurse Practitioner Family
DX: Z12.31 Encounter for screening mammogram for malignant neoplasm of breast (principal)
CPT/HCPCS: 77063; 77067

== ENCOUNTER 2024-06-14 13:42 | Outpatient (CLI) | payer OTHER, SELFPAY ==
--- NOTE | ~2024-06-14 | DEXA_ITS ---
Bone Density Report Name: JAI GONZALES Age: 78 Sex: Female Ethnicity: White Date of : 1945 Indication: postmenopausal; screening for osteoporosis; height loss; hysterectomy; Referring Provider: AMADEO MICHAEL Study: Bone densitometry was performed. Exam Date: June 14, 2024 Accession number: [id number] Bone Density: Region BMD T-score Z-score Classification AP Spine(L1, L2) 1.029 0.5 3.0 Normal Femoral Neck (Left) 0.595 -2.3 0.0 Osteopenia Total Hip (Left) 0.801 -1.2 0.9 Osteopenia Femoral Neck (Right) 0.530 -2.9 -0.5 Osteoporosis Total Hip (Right) 0.768 -1.4 0.7 Osteopenia Total Hip Mean 0.785 -1.3 0.8 Osteopenia World Health Organization criteria for BMD impression classify patients as: Normal (T-score at or above -1.0), Osteopenia (T-score between -1.0 and -2.5), or Osteoporosis (T-score at or below -2.5). 10-year Fracture Risk: FRAX not reported because: Some T-score for Spine Total or Hip Total or Femoral Neck at or below -2.5 Previous Exams: Region Exam Age BMD T-score BMD Change BMD Change Date g/cm2 vs Baseline vs Previous AP Spine (L1-L2) 06/14/2024 78 1.029 0.5 0.036 (3.6%)# 0.058 (6.0%)# 04/27/2020 74 0.971 -0.1 -0.022 (-2.2%) -0.022 (-2.2%) 03/17/2017 71 0.993 0.1 Total Hip(Left) 06/14/2024 78 0.801 -1.2 -0.048 (-5.7%) -0.041 (-4.9%) 04/27/2020 74 0.842 -0.8 -0.007 (-0.9%) -0.007 (-0.9%) 03/17/2017 71 0.849 -0.8 Total Hip(Right) 06/14/2024 78 0.768 -1.4 -0.101 (-11.6% -0.066 (-7.9%) 04/27/2020 74 0.834 -0.9 -0.035 (-4.0%) -0.035 (-4.0%) 03/17/2017 71 0.869 -0.6 *Denotes significance at 95% confidence level, LSC for AP Spine = 0.022 g/cm2, LSC for Total Hip = 0.027 g/cm2 # Denotes dissimilar scan types or analysis methods Clinical Information Provided by Patient: Has used the following medications: Calcium Has the following medical conditions: Hysterectomy Patient maximum height was 66 No regular weight bearing exercise Does not regularly consume dairy products Drinks caffeinated beverages Onset of menses at age 14 Number of children 3 Impression: The patient has osteoporosis, based on the Right Femoral Neck T-score. No significant bone loss was observed. Discussion: INCREASED RISK OF FRACTURE. BONE DENSITY IS UNDESIRABLY LOW AT ONE OR MORE SKELETAL SITES, CONSISTENT WITH POSTMENOPAUSAL OSTEOPOROSIS. This patient's lowest T-score meets the World Health Organization's (WHO) criteria for osteoporosis at one or more sites (T-score -2.5 or below). In untreated patients, the risk of osteoporotic fracture increases approximately two-fold for each 1.0 SD decrease in T-score. Low bone density is not the only risk factor for fracture; also consider factors such as patient's age, frailty or poor health, risk of falling, risk of injury, previous osteoporotic fracture, family history of osteoporosis, cigarette smoking, low body weight, etc. Not everyone with low bone mineral density has osteoporosis; osteomalacia and other metabolic bone disorders should also be considered. Patients who have osteoporosis should be evaluated for specific diseases and conditions (secondary causes) that may cause or contribute to bone loss. The [place] Association of Clinical Endocrinologists (AACE) and National Osteoporosis Foundation (NOF) recommend pharmacologic intervention for all postmenopausal women whose T-score is in this range. The patient should follow a healthful lifestyle (good nutrition with adequate calcium and vitamin D, and appropriate weight-bearing exercise). Follow-Up: Consider a repeat BMD and Vertebral Fracture Assessment (VFA) exam in 2 years or sooner if medically necessary, to reassess this patient's status. Reported by: IHSAN on 06/14/2024 2:15:00 PM. Reviewed, dictated and finalized at location AP[facility] [place]
--- OUTSIDE RECORDS SUMMARY | 2024-06-14 14:01 | XMS_ITS | CONTINUITY OF CARE DOCUMENT ---
Author Name alvarado childers Address Unknown Organization [facility] Address [address] [place] [address] [address] [place] [address] Phone [phone] Care Team Providers Care Wool Carder Name Role Phone alvarado childers Unavailable Unavailable
--- OUTSIDE RECORDS SUMMARY | 2024-06-14 14:01 | XMS_ITS | Patient Health Record ---
Author Organization [facility] [employer] Address [address] [place] [address] Care Team Providers Care Snout Puller Name Role Phone Salazar Borjas MD Primary Care Provider UnavailArturo Olivier Unavailable [phone] Migration, Provider Unavailable Unavailable Allergies No Known Allergies Reason For Referral No Information Medications Medication SIG (Take, Route, Frequency, Duration) Notes Start Date End Date Status glipiZIDE 5 MG Oral 08/23/2023 Acti ve Alendronate Sodium 70 MG Oral 08/23/2023 Active lamoTRIgine 25 MG Oral 08/23/2023 A ctive Furosemide 20 MG Oral 08/23/2023 Ac tive Contour Blood Glucose System w/Device In Vitro 08/23/2023 Active Losartan Potassium 25 MG Oral 08/23/2023 Active metFORMIN HCl 1000 MG Oral 08/23/2023 Active MICROLET MISCELLANEOUS *Reorder from [employer] for eRx and Interaction Alerts* 08/23/2023 Active Levothyroxine Sodium 50 MCG Oral 08/23/2023 Active buPROPion HCl ER (XL) 150 MG 1 tablet in the morning Oral Once a day for 90 days Active methylPREDNISolone 4 MG Oral 08/23/2023 Not-Taking Immunizations Vaccine Route Administration Date Status Comme nts Pneumococcal polysaccharide PPV23 Unknown 06/02/2015 Ad ministered Pneumococcal conjugate PCV 7 Unknown 02/19/2015 Adminis tered Moderna Covid-19 Vaccine 1st dose Unknown 10/21/2020 Ad ministered Moderna Covid-19 Vaccine 1st dose Unknown 11/18/2020 Ad ministered Infuenza, trivalent, recombi nant, preservative free Unknown 03/13/2018 Administered Influenza, high-dose seasona l, quadrivalent, preservative free >65 yrs Unknown 03/11/2020 Administered Influenza, high dose seasonal Unknown 02/12/2015 Admini stered Influenza, high dose seasonal Unknown 03/09/2016 Admini stered Influenza, high dose seasonal Unknown 03/29/2017 Admini stered Influenza, high dose seasonal Unknown 03/14/2019 Admini stered Influenza virus vaccine, quadrivalent (IIV4), split virus, 0.25 mL dosage Unknown 02/15/2018 Administered Social History Sex Assigned At : Social History Observation Description Sex Assigned At Female Problems Problem Type SNOMED Code ICD Code Onset Dates Problem Status W/U Status Risk Notes Problem Mild recurrent major depression (41785724) Major depressive disorder, recurrent, mild (F33.0) Active confirmed Problem Generalized anxiety disorder (94176698) Generalized anxiety disorder (F41.1) Active confirmed Problem Insomnia (086685251) Other insomnia (G47.09) Active confirmed Problem Panic disorder (341064218) Panic disorder [episodic paroxysmal anxiety] without agoraphobia (F41.0) Active confirmed Vital Signs Heart Rate 82 /min 03/13/2024 Blood pressure diastolic 77 mm Hg 03/13/2024 Height-cm 162.56 cm 03/13/2024 Weight-kg 92.8 kg 03/13/2024 Height 64.00 in 03/13/2024 Blood pressure systolic 168 mm Hg 03/13/2024 Weight 204.6 lbs 03/13/2024 BMI 35.12 kg/m2 03/13/2024 Encounters Encounter Location Date Provider Diagnosis [facility] [employer] [address] [place] [address] 07/13/2023 Arturo Woo Generalized anxiety disorder F41.1 ; Major depressive disorder, recurrent, mild F33.0 ; Major depressive disorder, recurrent, moderate F33.1 ; Other insomnia G47.09 and Panic disorder [episodic paroxysmal anxiety] without agoraphobia F41.0 [facility] [employer] [facility] [address] [place] [address] 08/23/2023 Arturo Woo Major depressive disorder, recurrent, moderate F33.1 ; Other insomnia G47.09 ; Panic disorder [episodic paroxysmal anxiety] without agoraphobia F41.0 and Generalized anxiety disorder F41.1 [email or web address] [place] [id number] [facility] [address] [address] 11/22/2023 Arturo Woo Generalized anxiety disorder F41.1 ; Panic disorder [episodic paroxysmal anxiety] without agoraphobia F41.0 ; Major depressive disorder, recurrent, mild F33.0 and Other insomnia G47.[address] [address] 03/13/2024 Arturo Woo Hypertension, unspecified type 401.9 ; Generalized anxiety disorder F41.1 ; Panic disorder [episodic paroxysmal anxiety] without agoraphobia F41.0 ; Major depressive disorder, recurrent, mild F33.0 and Other insomnia G47.[address] [address] 07/28/2023 Provider Migration [email or web address] [address] [address] 08/22/2023 Provider Migration [email or web address] [address] [address] 08/26/2023 Provider Migration [address] [address] 08/27/2023 Provider Migration Assessments Encounter Date Diagnosis (ICD Code) Assessment Notes Treatment Notes Treatment Clinical Notes Section Notes 07/13/2023 Major depressive disorder, recurrent, mild (ICD-10 - F33.0) 07/13/2023 Major depressive disorder, recurrent, moderate (ICD-10 - F33.1) 07/13/2023 Generalized anxiety disorder (ICD-10 - F41.1) 07/13/2023 Other insomnia (ICD-10 - G47.09) 07/13/2023 Panic disorder [episodic paroxysmal anxiety] without agoraphobia (ICD-10 - F41.0) 08/23/2023 Major depressive disorder, recurrent, moderate (ICD-10 - F33.1) 08/23/2023 Generalized anxiety disorder (ICD-10 - F41.1) 08/23/2023 Other insomnia (ICD-10 - G47.09) 08/23/2023 Panic disorder [episodic paroxysmal anxiety] without agoraphobia (ICD-10 - F41.0) 11/22/2023 Generalized anxiety disorder (ICD-10 - F41.1) [...] to monitor progress and address any concerns. 03/13/2024 Hypertension, unspecified type (ICD9-CM - 401.9) [...] for a referral for the new year. 11/22/2023 Major depressive disorder, recurrent, mild (ICD-10 [...] to monitor progress and address any concerns. 03/13/2024 Panic disorder [episodic paroxysmal anxiety] without [...] for a referral for the new year. 11/22/2023 Other insomnia (ICD-10 - G47.09) 1. [...] to monitor progress and address any concerns. 03/13/2024 Major depressive disorder, recurrent, mild (ICD-10 [...] for the new year. Plan Of Treatment Next Appt Details Provider Name:Arturo oseguera, 07/11/2024 04:30:00 PM, [address], [place], [address], Insurance Providers Payer Name Payer Address Payer Phone Subscriber Number Group Number Insured Name Patient Relationship to Insured Coverage Start Date Coverage End Date [employer] [facility]/ [employer] - [employer] [address] [place] [phone] [id number] OMAR HERNANDEZWILLACOOCHEE Self - patient is the insured Medical (General) History Medical History History ICD Code Problems: Generalized anxiety disorder Mild recurrent major depression Moderate recurrent major depression Panic disorder Panic disorder without agoraphobia Persistent insomnia Severe recurrent major depression withou t psychotic features , Surgical History Surgery Date(Month/Year) Xcapsl ctrc rmvl cplx wo ecp (11525) Removal of gallbladder (97837) Removal of ovary(s) (96072) Hysterectomy/revise vagina (24470)
--- OUTSIDE RECORDS SUMMARY | 2024-06-14 14:01 | XMS_ITS | Referral Summary ---
Author Organization [facility] Address [address] [facility] [address] Care Team Providers Care Alarm Signaler Name Role Phone Elie Soria DO Primary Care Provider [phone] Source Comments [facility],non-owned Affiliates and Associated Physician Practices is amultiple site organization consisting of ambulatory clinics and hospital sitesin [place], [place], [place] and [place]. This disclosure is being madepursuant to the Care Everywhere program and may not contain all information available regarding this patient. Last updated 17.[facility] [employer] Allergies No known active allergies Active Problems [...] of Treatment Not on file Care Teams Alarm Signaler Relationship Specialty Start Date End Date Elie Soria DO [address] [place], [place] [id number] PCP - General 01/10/18
--- OUTSIDE RECORDS SUMMARY | 2024-06-14 14:01 | XMS_ITS ---
Author Organization [facility] [employer] Address [address] [place] [address] Care Team Providers Care Library Services Dean Name Role Phone Salazar Borjas MD Primary Care Provider UnavailArturo Olivier Unavailable [phone] Allergies No Known Allergies REASON FOR VISIT [...] 08/23/2023 Ac tive MICROLET MISCELLANEOUS *Reorder from [employer] for eRx and Interaction Alerts* 08/23/2023 Active [...] W/U Status Risk Notes Problem Panic disorder (110376933) Panic disorder [episodic paroxysmal anxiety] without agoraphobia (F41.0) Active confirmed Problem Mild recurrent major depression (14073447) Major depressive disorder, recurrent, mild (F33.0) Active confirmed Problem Insomnia (954908303) Other insomnia (G47.09) Active confirmed Vital Signs Blood pressure systolic 168 mm Hg 03/13/20 24 Blood pressure diastolic 77 mm Hg 024 Heart Rate 82 /min 03/13/2024 Height 64.00 in 03/13/2024 Weight 204.6 lbs 03/13/2024 BMI 35.12 kg/m2 03/13/2024 Height-cm 162.56 cm 03/13/2024 Weight-kg 92.8 kg 03/13/2024 Encounters Encounter Location Date Provider Diagnosis [facility] [employer] [address] [place] [address] 03/13/2024 Arturo Woo Hypertension, unspecified type 401.9 [...] anxiety Provider Name:Arturo oseguera, 07/11/2024 04:30:00 PM, [address], [place], [address], Progress Notes * JAI GONZALES MDOB:[birth year] (78 yo F)Acc No.[id number]:03/13/2024 Patient: JAI WEEMS Provider: ZARA CLEMENTS :1945 A ge:78 Y S ex:Female Date:03/13/2024 Address:[address] [place], [place] [address] Pcp:Salazar Borjas MD Subjective: * Chief Complaints: [...] P ositve, F ollow-Up for Depression M entks health treatment assessment, Patient follow-up to return [...] MISCELLANEOUS , Notes to Pharmacist: *Reorder from [facility] for eRx and Interaction Alerts*Levothyroxine Sodium 50 [...] MISCELLANEOUS , Notes to Pharmacist: *Reorder from [facility] for eRx and Interaction Alerts*Taking Levothyroxine Sodium [...] right eye, but overall assessment by the fire prevention specialist was that it looked okay so far. [...] 9 6127 BEHAV ASSMT W/SCORE & DOCD/STAND [id number] VISIT COMPLEXITY INHERENT TO ONGOING CARE RELATED [...] anxiety) * Billing Information: * Visit Code: 32746 OFFICE OUTPATIENT VISIT 25 MINUTES DETAILED HISTORY AND EXAM/MODERATE MEDICAL DECISION MAKING. * Procedure Codes: 08042 BEHAV ASSMT W/SCORE & DOCD/STAND INSTRUMENT. G2211 VISIT COMPLEXITY INHERENT TO ONGOING CARE RELATED TO A PATIENT'S SINGLE, SERIOUS CONDITION OR A COMPLEX CONDITION. * ROUTER OPERATOR Sign off status: Completed true * Provider: ZARA CLEMENTS Date: 05/14/2023 Generated for Anai Sheth/Seblesmlex on: 0 06/14/2024 02:00 PM HAND ROUTER OPERATOR History and Physical Notes * HPI (History [...] Screening Findings: P ositve Follow-Up for Depression: [facility] treatment assessment, Patient follow-up to return when [...] right eye, but overall assessment by the fire prevention specialist was that it looked okay so far. [...]
--- OUTSIDE RECORDS SUMMARY | 2024-06-14 14:01 | XMS_ITS ---
Author Organization [facility] [employer] Address [address] [place] [address] Care Team Providers Care Oil Distributor Name Role Phone Salazar Borjas MD Primary Care Provider Arturo Carpenter Unavailable [phone] Medications Medication SIG (Take, Route, Frequency, Duration) Notes Start Date End Date Status Levothyroxine Sodium 50 MCG Oral 08/23/2023 Active MICROLET MISCELLANEOUS *Reorder from [employer] for eRx and Interaction Alerts* 08/23/2023 Active [...] Female Encounters Encounter Location Date Provider Diagnosis [facility] [employer] [address] [place] [address] 11/22/2023 Arturo Woo Generalized anxiety disorder F41.1 [...] Provider Name:Arturo oseguera, 07/11/2024 04:30:00 PM, [address] [facility] [address] [facility] [address], [place], [address], Progress Notes * JAI GONZALES MDOB:[birth year] (77 yo F)Acc No.[id number]:11/22/2023 Patient: JAI WEEMS Provider: ZARA CLEMENTS :1945 A ge:77 Y S ex:Female Date:11/22/2023 Address:[address] [place] [address], [facility] Subjective: * Chief Complaints: * * HPI: [...] with them since November 2020, 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 * Procedure Codes: G2211 VISIT COMPLEXITY INHERENT TO ONGOING CARE RELATED TO A PATIENT'S SINGLE, SERIOUS CONDITION OR A COMPLEX CONDITION. * Sign off status: Completed true * Provider: ZARA CLEMENTS Date: 0 11/22/2023 Generated for Anai newell/Kailey/Jackie on: 0 06/14/2024 02:00 PM [employer] History and Physical Notes * Examination Category [...]
--- OUTSIDE RECORDS SUMMARY | 2024-06-14 14:01 | XMS_ITS ---
Author Organization [facility] [employer] Address [address] [place] [address] Care Team Providers Care Greige Goods Marker Name Role Phone Salazar Borjas MD Primary Care Provider Arturo Carpenter Unavailable [phone] Migration, Provider Unavailable Unavailable REASON FOR VISIT [...] Oral 08/23/2023 Active MICROLET MISCELLANEOUS *Reorder from [employer] for eRx and Interaction Alerts* 08/23/2023 Active Losartan Potassium 25 MG Oral 08/23/2023 Active glipiZIDE 5 MG Oral 08/23/2023 Acti ve lamoTRIgine 25 MG Oral 08/23/2023 A ctive Social History Sex Assigned At : Social History Observation Description Sex Assigned At Female Encounters Encounter Location Date Provider Diagnosis [facility] [employer] [address] [place] [address] 08/27/2023 Provider Migration Plan Of Treatment Next Appt Details Provider Name:Arturo oseguera, 07/11/2024 04:30:00 PM, [address], [place], [address], Progress Notes * JAI GONZALES MDOB:[birth year] (77 yo F)Acc No.[id number]:08/27/2023 Patient: JAI WEEMS :1945 A ge:77 Y S ex:Female Address:[address] [place] [address] Subjective: * Chief Complaints: * E MR-Evan * Medical History: * Gaming 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 for eRx and Interaction Alerts*Levothyroxine Sodium [...] MISCELLANEOUS , Notes to Pharmacist: *Reorder from [facility] for eRx and Interaction Alerts*Taking Levothyroxine Sodium 50 MCG Tablet Oral Objective: * Vitals: * Physical Examination: Assessment: Plan: * Treatment: * Procedure Codes: * true * Date: Generated for Anai newell/Kailey/Jackie on: 0 06/14/2024 02:01 PM DIRECTOR OF SPECIAL EDUCATION
--- OUTSIDE RECORDS SUMMARY | 2024-06-14 14:01 | XMS_ITS | Continuity of Care Document ---
Author Organization [facility] [place] [facility] Address [address] [facility] [address] [place] [address] Phone Care Team Providers Care Leathersmith Name Role Phone Rosemarie STONE, Amy Unavailable [...] and evening meals 1000 MG - Active glipizide 5 mg tablet take 1 tablet by oral route 2 times every day before meals 5 MG - No Longer Active Lexapro 20 mg tablet take 1 tablet by oral route every day 20 MG - No Longer Active Procedures Procedure [...] Diagnoses Date Provider Providers Copied on Encounter [facility], [address] [place] [address] [address], [place], [place], [address], tel:[phone] SEC [place] NARA Professional No Information Oct-3 4 Rosemarie OD Amy. [address] [place] [address], [address], [place], [place], [address], . tel:[phone] [facility] [employer] [facility], [address] [facility] [address], [place], [place], [address], tel:[phone] [place] Professional diabetic eye exam [...] edema Oct-3 0- 4 Rosemarie OD Amy. [address], [address], [place], [place], [address], [place]. tel:[phone] Referring Provider: Jesus Dhillon, [address], [place], [address] . tel:[phone] [facility], [facility] [address], [place], [place], [address], [place] tel:[phone] [place] Professional diabetic eye exam (chief complaint) Age-related nuclear cataract, right eyePseudophaki a of left eyeType 2 diabetes mellitus without complicationsE piretinal membrane (ERM) of left eyeAmblyopia of left eye Oct-2 3 Rosemarie OD Amy. [facility] [employer], [address], [place], [place], [address], [place]. tel:[phone] Referring Provider: Jesus Dhillon, [address], [place], [address] . tel:[phone] [facility], [facility] [address], [place], [place], [address], [place] tel:[phone] [place] Professional diabetic eye exam (chief complaint) Age-related nuclear cataract, right eyeEpiretinal membrane (ERM) of left eyeType 2 diabetes mellitus without complications Beni-2 2 Warren Lee. [address], [address], [place], [place], [address], [place]. tel:[phone] Referring Provider: Jesus Dhillon, [address], [place], [address] . tel:[phone] Office/outpa tient Visit, [facility], [facility] [address], [place], [place], [address], [place] tel:[phone] [place] Professional Cataract (chief complaint) Epiretinal membrane (ERM) of left eyePseudophaki a of left eyeAge-related nuclear cataract, right eyeType 2 diabetes mellitus without complications 1 Warren Lee. [address], [address], [place], [place], [address], [place]. tel:[phone] Referring Provider: Jesus Dhillon, [address] [facility] [address], [place], [address] . tel:[phone] [facility], [address], [place], [place], [address], [place] tel:[phone] [place] Professional Complete Exam (chief complaint) Age-related nuclear cataract, right eyePseudophaki a of left eyeEpiretinal membrane (ERM) of left eyeRPE mottling of maculaType 2 diabetes mellitus without complicationsP unctate keratitis, bilateralCrani al third nerve paralysis, left 1 Warren Lee. [address] [facility], [address], [place], [place], [address], [place]. tel:[phone] Referring Provider: Jesus Dhillon, [address] [facility] [address], [place], [address] . tel:[phone] Office/outpa tient Visit, [facility], [address], [place], [place], [address], [place] tel:[phone] [place] Professional pain and double [place] (chief complaint) Cranial third nerve paralysis, leftPtosis, left eyelidAfferent pupillary defect of left eye 0 Warren Lee. [address] [facility], [address], [place], [place], [address], [place]. tel:[phone] Referring Provider: Jesus Dhillon, [address] [facility] [address], [place], [address] . tel:[phone] Office/outpa tient Visit, [facility], [address], [place], [place], [address], [place] tel:[phone] [place] Professional Cataract Eval (chief complaint) Age-related nuclear cataract, right eyeAmblyopia of left eyePseudophaki a of left eyeType 2 diabetes mellitus without complications 0 Warren Lee. [address] [employer], [address], [place], [place], [address], [place]. tel:[phone] Referring Provider: Jesus Dhillon, [address], [place], [address] . tel:[phone] [facility], [address], [place], [place], [address], tel:[phone] [place] Professional Complete Exam (chief complaint) Amblyopia of left eyeType 2 diabetes mellitus without complicationsE piretinal membrane (ERM) of left eyePunctate keratitis, left eyePseudophaki a of left eyeAge-related nuclear cataract, right eyeRPE mottling of maculaPallor of optic disc of left eyeVisual disturbance 0 Warren Lee. [address] [employer], [address], [place], [place], [address], [place]. tel:[phone] Referring Provider: Jesus Dhillon, [address], [place], [address] . tel:[phone] [facility] [employer] [facility], [address], [place], [place], [address], [place] [phone] SEC [place] Professional No Information 9 Warren Lee. [address], [facility] [address], [place], [place], [address], [place]. tel:[phone] Office/outpa tient Visit, [facility] [employer] [facility], [address], [place], [place], [address], [place] [phone] [place] Professional Follow up visit (chief complaint) Subjective visual disturbance 8 Warren Lee. [address] [facility], [facility] [place], [address], . tel:[phone] Referring Provider: Jesus Dhillon, [address] [facility] [place], [address] . tel:[phone] [facility], [address] [place] [address] [address], [place], [address], [phone] [place] Professional Complete Exam (chief complaint) No Information 8 Warren Lee. [address] [facility], [facility] [place], [address], . tel:[phone] Referring Provider: Jesus Dhillon, [address] [place], [address] . tel:[phone] [facility], [address] [place] [address] [address], [place], [address], [phone] [place] Professional No Information 8 Warren Lee. [address] [facility], [facility] [place], [address], . tel:[phone] Family History Family Member Type Diagnosis Age At Onset Father Problem (finding) Diabetes mellitus Payers Payer name Insurance type Covered republican ID Sunnyana rosa kirtimitzy(s) [employer] [id number] Social History Type Description Quantity Date Captured [...] Referral Referred To: Ayesha Keene [address] [place], [phone] Ordered: Referrals: Allopathic & Osteopathic Physicians : Ophthalmology. Ayesha Keene. Evaluate and treat ordered Referral Referred To: Sigrid Cardona MD [address] [place] [address], [phone] Ordered: Referrals: Ophthalmology. Sigrid Cardona MD ordered Referral Referred To: Sigrid Cardona [address] [place] [address], [phone] Ordered: Referrals: Allopathic & Osteopathic Physicians : [...]
--- OUTSIDE RECORDS SUMMARY | 2024-06-14 14:01 | XMS_ITS | Clinical Summary ---
Author Organization [facility] Address [address] [place] [address] Care Team Providers Care Strap Sewer Name Role Phone Elie Soria DO Primary Care Provider [phone] Source Comments [facility],non-owned Affiliates and Associated Physician Practices is amultiple site organization consisting of ambulatory clinics and hospital sitesin [place], [place], [place] and [place]. This disclosure is being madepursuant to the Care Everywhere program and may not contain all information available regarding this patient. Last updated 17.[facility] [employer] Allergies No known active allergies Active Problems [...] age to complete this topic Care Teams Strap Sewer Relationship Specialty Start Date End Date Elie Soria DO [address] [place] [address] PCP - General 01/10/18
--- OUTSIDE RECORDS SUMMARY | 2024-06-14 14:01 | XMS_ITS | Patient Health Summary ---
Author Organization [facility] Address [address] [facility] [place] [address] Care Team Providers Care Director Money Name Role Phone Elie Soria DO Primary Care Provider [phone] Note from [facility],non-owned Affiliates and Associated Physician Practices is amultiple site organization consisting of ambulatory clinics and hospital sitesin [place], [place], [place] and [place]. This disclosure is being madepursuant to the Care Everywhere program and may not contain all information available regarding this patient. Last updated 17.[facility] Related Content Database (RCDb) Allergies No known active allergies Active Problems [...] the orbits. Dictated by Liseth Alvarenga MD (residential program manager). I, Dr. SONAM BARBA have personally reviewed [...] the orbits. Dictated by Liseth Alvarenga MD (residential program manager). I, Dr. SONAM BARBA have personally reviewed and interpreted this examination/study. This report was electronically signed by SONAM BARBA on 07/25/2018 2:42PM . Yvonne Ferrari MD CT ORDERABLES * (ABNORMAL) CREATININE BLOOD - POCT (IP) [facility] (07/25/2018 1:49 PM CDT) Creatinine POCT 1.42(A) 0.3 - 1.3 mg/dL [facility] TEST[facility] eGFR POCT 38(A) 60 ml/min [facility] Blood BLOOD SPECIMEN / Unknown 07/25/2018 1:49 PM CDT Ayesha Keene MD LAB - POINT OF CARE ORDERABLES [facility] POCT TEST[facility] [address] [place] [address] * OPH COLOR FUNDUS PHOTOGRAPHY [facility] (04/18/2018 1:08 PM RESIZER OPERATOR) Anatomical Region Laterality Modality Other 04/18/2018 1:08 PM RESIZER OPERATOR Ayesha Keene MD OPHTHALMOLOGY SERVIC ES ORDERABLES * OPH VISUAL FIELD TEST [facility] (04/18/2018 10:47 AM RESIZER OPERATOR) Anatomical Region Laterality Modality Other 04/18/2018 10:4 7 AM RESIZER OPERATOR Ayesha Keene MD OPHTHALMOLOGY SERVIC ES ORDERABLES * OPH OCT TEST [facility] (04/18/2018 12:00 AM RESIZER OPERATOR) Anatomical Region Laterality Modality Other 04/18/2018 Ayesha Keene MD OPHTHALMOLOGY SERVIC ES ORDERABLES Care Teams Director Money Relationship Specialty Start Date End Date Elie Soria DO [address] [facility] [place] [address] PCP - General 01/10/18
== END 2024-06-14 13:43 | disposition home or self-care (01) ==
LOC: ANHIMG 13:43
PROVIDERS: PCP Family Medicine; Visit Provider Nurse Practitioner Family
DX: M81.0 Age-related osteoporosis without current pathological fracture (principal); M85.89 Other specified disorders of bone density and structure, multiple sites; Z78.0 Asymptomatic menopausal state; Z13.820 Encounter for screening for osteoporosis
CPT/HCPCS: 77080

== ENCOUNTER 2024-06-19 11:38 | Outpatient (CLI) | payer OTHER, SELFPAY ==
[2024-06-19 12:37] LABS: Hemoglobin A1C 6.7 % (<5.7)
[2024-06-19 12:43] LABS: Alanine Aminotransferase 26 U/L (6-35); Albumin Level 4.2 g/dL (3.5-5.1); Alkaline Phosphatase 54 U/L (38-126); Anion Gap 12 mmol/L (4-12); Aspartate Amino Transferase 28 U/L (14-36); Bilirubin,Total 0.8 mg/dL (0.2-1.3); Blood Urea Nitrogen 26 mg/dL (7-17); Carbon Dioxide 25 mmol/L (22-30); Chloride 103 mmol/L (98-107); Estimated Glomerular Filt Rate 57; Glucose 153 mg/dL (65-110); Potassium 4.6 mmol/L (3.4-5.0); Sodium 140 mmol/L (137-145)
[2024-06-19 13:00] LABS: Vitamin D 25 Hydroxy 28.5 ng/mL
--- OUTSIDE RECORDS SUMMARY | 2024-06-19 13:29 | XMS_ITS ---
Author Organization [facility] [employer] Address [address] [place] [address] Care Team Providers Care Cutting Machine Fixer Name Role Phone Salazar Borjas MD Primary Care Provider Arturo Carpenter Unavailable [phone] Medications Medication SIG (Take, Route, Frequency, Duration) Notes Start Date End Date Status Levothyroxine Sodium 50 MCG Oral 08/23/2023 Active MICROLET MISCELLANEOUS *Reorder from [employer] for eRx and Interaction Alerts* 08/23/2023 Active [...] Female Encounters Encounter Location Date Provider Diagnosis [facility] [address] [place] [address] 11/22/2023 Arturo Woo Generalized anxiety disorder F41.1 [...] Provider Name:Arturo oseguera, 07/11/2024 04:30:00 PM, [address], [facility] [address], [place], [address], Progress Notes * JAI GONZALES MDOB:[birth year] (77 yo F)Acc No.[id number]:11/22/2023 Patient: JAI WEEMS Provider: ZARA CLEMENTS :1945 A ge:77 Y S ex:Female Date:11/22/2023 Address:[address] [place] [address], [facility] Subjective: * Chief Complaints: * [...] with them since November 2020, assists with product consultant and contributes financially by paying water and button sewer hand bills and allowing the patient to use [...] MISCELLANEOUS , Notes to Pharmacist: *Reorder from [facility] for eRx and Interaction Alerts*, Taking Levothyroxine [...] anxiety) * Billing Information: * Visit Code: 79268 OFFICE OUTPATIENT VISIT 25 MINUTES DETAILED HISTORY AND EXAM/MODERATE MEDICAL DECISION MAKING. * Procedure Codes: G2211 VISIT COMPLEXITY INHERENT TO ONGOING CARE RELATED TO A PATIENT'S SINGLE, SERIOUS CONDITION OR A COMPLEX CONDITION. * Sign off status: Completed true * Provider: ZARA CLEMENTS Date: 0 11/22/2023 Generated for Anai newell/Kailey/Jackie on: 0 06/19/2024 01:29 PM CDT History and Physical Notes * Examination Category [...]
--- OUTSIDE RECORDS SUMMARY | 2024-06-19 13:29 | XMS_ITS ---
Author Organization [facility] [employer] Address [address] [place] [address] Care Team Providers Care Stereotyper Name Role Phone Salazar Borjas MD Primary Care Provider UnavailArturo Olivier Unavailable [phone] Allergies No Known Allergies REASON FOR VISIT [...] 08/23/2023 Ac tive MICROLET MISCELLANEOUS *Reorder from [employer] for eRx and Interaction Alerts* 08/23/2023 Active [...] W/U Status Risk Notes Problem Panic disorder (405960836) Panic disorder [episodic paroxysmal anxiety] without agoraphobia (F41.0) Active confirmed Problem Mild recurrent major depression (88538452) Major depressive disorder, recurrent, mild (F33.0) Active confirmed Problem Insomnia (420983827) Other insomnia (G47.09) Active confirmed Vital Signs Blood pressure systolic 168 mm Hg 03/13/20 24 Blood pressure diastolic 77 mm Hg 024 Heart Rate 82 /min 03/13/2024 Height 64.00 in 03/13/2024 Weight 204.6 lbs 03/13/2024 BMI 35.12 kg/m2 03/13/2024 Height-cm 162.56 cm 03/13/2024 Weight-kg 92.8 kg 03/13/2024 Encounters Encounter Location Date Provider Diagnosis [facility] [address] [place] [address] 03/13/2024 Arturo Woo Hypertension, unspecified type 401.9 [...] anxiety Provider Name:Arturo oseguera, 07/11/2024 04:30:00 PM, [address], [place], [address], Progress Notes * JAI GONZALES MDOB:[birth year] (78 yo F)Acc No.[id number]:03/13/2024 Patient: JAI WEEMS Provider: ZARA CLEMENTS :1945 A ge:78 Y S ex:Female Date:03/13/2024 Address:[address] [place], [place] [id number] Pcp:Salazar Borjas MD Subjective: * Chief Complaints: [...] P ositve, F ollow-Up for Depression M entma health treatment assessment, Patient follow-up to return [...] MISCELLANEOUS , Notes to Pharmacist: *Reorder from [facility] for eRx and Interaction Alerts*Levothyroxine [...] MISCELLANEOUS , Notes to Pharmacist: *Reorder from [facility] for eRx and Interaction Alerts*Taking [...] right eye, but overall assessment by the optical instrument specialist was that it looked okay so [...] 9 6127 BEHAV ASSMT W/SCORE & DOCD/STAND [id number] VISIT COMPLEXITY INHERENT TO ONGOING CARE RELATED [...] anxiety) * Billing Information: * Visit Code: 03191 OFFICE OUTPATIENT VISIT 25 MINUTES DETAILED HISTORY AND EXAM/MODERATE MEDICAL DECISION MAKING. * Procedure Codes: 75669 BEHAV ASSMT W/SCORE & DOCD/STAND INSTRUMENT. G2211 VISIT COMPLEXITY INHERENT TO ONGOING CARE RELATED TO A PATIENT'S SINGLE, SERIOUS CONDITION OR A COMPLEX CONDITION. * LE MECHANIC Sign off status: Completed true * Provider: ZARA CLEMENTS Date: 1 05/14/2023 Generated for Anai Sheth/Locransmitting on: 0 06/19/2024 01:29 PM CDT History and Physical Notes * HPI (History [...] P ositve Follow-Up for Depression: [facility] treatment assessment, Patient follow-up to return when [...] right eye, but overall assessment by the optical instrument specialist was that it looked okay so [...]
--- OUTSIDE RECORDS SUMMARY | 2024-06-19 13:29 | XMS_ITS | Patient Health Record ---
Author Organization [facility] Address [address] [place] [address] Care Team Providers Care Maintenance And Utilities Supervisor Name Role Phone Salazar Borjas MD Primary Care Provider UnavailArturo Olivier Unavailable [phone] Migration, Provider Unavailable Unavailable Allergies No Known [...] Oral 08/23/2023 Active MICROLET MISCELLANEOUS *Reorder from [employer] for eRx and Interaction Alerts* 08/23/2023 Active Levothyroxine Sodium 50 MCG Oral 08/23/2023 Active buPROPion HCl ER (XL) 150 MG 1 tablet in the morning Oral Once a day for 90 days Active methylPREDNISolone 4 MG Oral 08/23/2023 Not-Taking Immunizations Vaccine Route Administration Date Status Comme nts Influenza virus vaccine, quadrivalent (IIV4), split virus, 0.25 mL dosage Unknown 02/15/2018 Administered Influenza, high dose seasonal Unknown 02/12/2015 Admini stered Influenza, high dose seasonal Unknown 03/09/2016 Admini stered Influenza, high dose seasonal Unknown 03/29/2017 Admini stered Influenza, high dose seasonal Unknown 03/14/2019 Admini stered Influenza, high-dose seasona l, quadrivalent, preservative free >65 yrs Unknown 03/11/2020 Administered Infuenza, trivalent, recombi nant, preservative free Unknown 03/13/2018 Administered Moderna Covid-19 Vaccine 1st dose Unknown 10/21/2020 Ad ministered Moderna Covid-19 Vaccine 1st dose Unknown 11/18/2020 Ad ministered Pneumococcal conjugate PCV 7 Unknown 02/19/2015 Adminis tered Pneumococcal polysaccharide PPV23 Unknown 06/02/2015 Ad ministered Social History Sex Assigned At : Social History Observation Description Sex Assigned At Female Problems Problem Type SNOMED Code ICD Code Onset Dates Problem Status W/U Status Risk Notes Problem Mild recurrent major depression (94682889) Major depressive disorder, recurrent, mild (F33.0) Active confirmed Problem Generalized anxiety disorder (49513758) Generalized anxiety disorder (F41.1) Active confirmed Problem Insomnia (552912569) Other insomnia (G47.09) Active confirmed Problem Panic disorder (324375049) Panic disorder [episodic paroxysmal anxiety] without agoraphobia (F41.0) Active confirmed Vital Signs Heart Rate 82 /min 03/13/2024 Blood pressure diastolic 77 mm Hg 03/13/2024 Height-cm 162.56 cm 03/13/2024 Weight-kg 92.8 kg 03/13/2024 Height 64.00 in 03/13/2024 Blood pressure systolic 168 mm Hg 03/13/2024 Weight 204.6 lbs 03/13/2024 BMI 35.12 kg/m2 03/13/2024 Encounters Encounter Location Date Provider Diagnosis [facility] [address] [facility] [address] [place] [address] 07/13/2023 Arturo Woo Generalized anxiety disorder F41.1 ; Major depressive disorder, recurrent, mild F33.0 ; Major depressive disorder, recurrent, moderate F33.1 ; Other insomnia G47.09 and Panic disorder [episodic paroxysmal anxiety] without agoraphobia F41.0 [facility] [address] [place] [address] 08/23/2023 Arturo Woo Major depressive disorder, recurrent, moderate F33.1 ; Other insomnia G47.09 ; Panic disorder [episodic paroxysmal anxiety] without agoraphobia F41.0 and Generalized anxiety disorder F41.1 [facility] [place] [address] [facility] [address] [address] 11/22/2023 Arturo Woo Generalized anxiety disorder F41.1 ; Panic disorder [episodic paroxysmal anxiety] without agoraphobia F41.0 ; Major depressive disorder, recurrent, mild F33.0 and Other insomnia G47.[address] [address] 03/13/2024 Arturo Woo Hypertension, unspecified type 401.9 ; Generalized anxiety disorder F41.1 ; Panic disorder [episodic paroxysmal anxiety] without agoraphobia F41.0 ; Major depressive disorder, recurrent, mild F33.0 and Other insomnia G47.[address] [address] 07/28/2023 [facility] [address] [address] 08/22/2023 [facility] [address] [address] 08/26/2023 Provider Migration [address] [address] 08/27/2023 Provider Migration Assessments Encounter Date Diagnosis [...] Details Provider Name:Arturo oseguera, 07/11/2024 04:30:00 PM, [address], [address], [place], [address], Insurance Providers Payer Name Payer Address Payer Phone Subscriber Number Group Number Insured Name Patient Relationship to Insured Coverage Start Date Coverage End Date [facility] Medicare [facility]/ [employer]vant[employer] - Hmo [address] [place] [phone] [id number] OMAR HERNANDEZAUSTIN Self - patient is the insured Medical (General) History Medical History History ICD Code Problems: Generalized anxiety disorder Mild recurrent major depression Moderate recurrent major depression Panic disorder Panic disorder without agoraphobia Persistent insomnia Severe recurrent major depression withou t psychotic features , Surgical History Surgery Date(Month/Year) Xcapsl ctrc rmvl cplx wo ecp (30772) Removal of gallbladder (68215) Removal of ovary(s) (80677) Hysterectomy/revise vagina (97907)
--- OUTSIDE RECORDS SUMMARY | 2024-06-19 13:29 | XMS_ITS | CONTINUITY OF CARE DOCUMENT ---
Author Name alvarado childers Address Unknown Organization [facility] Address [address] [place] [address] [address] [place] [address] Phone [phone] Care Team Providers Care Manager System Name Role Phone alvarado childers Unavailable Unavailable
--- OUTSIDE RECORDS SUMMARY | 2024-06-19 13:30 | XMS_ITS | Continuity of Care Document ---
Author Organization [facility] Address [address] [place] [address] Phone Care Team Providers Care Regional Owner Operator Truck Driver Name Role Phone Rosemarie STONE, Amy Unavailable [...] Diagnoses Date Provider Providers Copied on Encounter [facility], [address] [place] [address] [address], [place], [place], [address], tel:[phone] [place] [facility] Professional No Information Oct-3 4 Rosemarie OD Amy. [address] [place] [address], [address], [place], [place], [address], . tel:[phone] [facility], [address] [facility], [place], [place], [address], tel:[phone] [place] Professional diabetic eye exam (chief complaint) [...] edema Oct-3 0- 4 Rosemarie OD Amy. [address], [address], [place], [place], [address], [place]. tel:[phone] Referring Provider: Jesus Dhillon, [address], [place], [address] . tel:[phone] [facility], [facility] [employer] [address], [place], [place], [address], [place] tel:[phone] [place] Professional diabetic eye exam (chief complaint) Age-related nuclear cataract, right eyePseudophaki a of left eyeType 2 diabetes mellitus without complicationsE piretinal membrane (ERM) of left eyeAmblyopia of left eye Oct-2 3 Rosemarie OD Amy. [facility] [address], [address], [place], [place], [address], [place]. tel:[phone] Referring Provider: Jesus Dhillon, [address], [place], [address] . tel:[phone] [facility], [facility] [employer] [address], [place], [place], [address], [place] tel:[phone] [place] Professional diabetic eye exam (chief complaint) Age-related nuclear cataract, right eyeEpiretinal membrane (ERM) of left eyeType 2 diabetes mellitus without complications Beni-2 2 Warren Lee. [address], [address], [place], [place], [address], [place]. tel:[phone] Referring Provider: Jesus Dhillon, [address], [place], [address] . tel:[phone] [place]outpa [place]ient Visit, [facility] [place], [facility] [employer] [address], [place], [place], [address], [place] tel:[phone] [place] Professional Cataract (chief complaint) Epiretinal membrane (ERM) of left eyePseudophaki a of left eyeAge-related nuclear cataract, right eyeType 2 diabetes mellitus without complications 1 Warren Lee. [address], [address], [place], [place], [address], [place]. tel:[phone] Referring Provider: Jesus Dhillon, [address] [facility] [address], [place], [address] . tel:[phone] [facility], [address], [place], [place], [address], [place] tel:[phone] [place] Professional Complete Exam (chief complaint) Age-related nuclear cataract, right eyePseudophaki a of left eyeEpiretinal membrane (ERM) of left eyeRPE mottling of maculaType 2 diabetes mellitus without complicationsP unctate keratitis, bilateralCrani al third nerve paralysis, left 1 Warren Lee. [address] [facility], [address], [place], [place], [address], [place]. tel:[phone] Referring Provider: Jesus Dhillon, [address] [facility] [address], [place], [address] . tel:[phone] Office/outpa [place]ient Visit, [facility] [place], [address], [place], [place], [address], [place] tel:[phone] [place] Professional pain and double VA (chief complaint) Cranial third nerve paralysis, leftPtosis, left eyelidAfferent pupillary defect of left eye 0 Warren Lee. [address] [facility], [address], [place], [place], [address], [place]. tel:[phone] Referring Provider: Jesus Dhillon, [address] [facility] [address], [place], [address] . tel:[phone] Office/outpa [place]ient Visit, [facility] [place] [address], [place], [place], [address], [place] tel:[phone] [place] Professional Cataract Eval (chief complaint) Age-related nuclear cataract, right eyeAmblyopia of left eyePseudophaki a of left eyeType 2 diabetes mellitus without complications 0 Warren Lee. [address], [address], [place], [place], [address], [place]. tel:[phone] Referring Provider: Jesus Dhillon, [address], [place], [address] . tel:[phone] [facility], [address], [place], [place], [address], tel:[phone] [place] Professional Complete Exam (chief complaint) Amblyopia of left eyeType 2 diabetes mellitus without complicationsE piretinal membrane (ERM) of left eyePunctate keratitis, left eyePseudophaki a of left eyeAge-related nuclear cataract, right eyeRPE mottling of maculaPallor of optic disc of left eyeVisual disturbance 0 Warren Lee. [address], [address], [place], [place], [address], [place]. tel:[phone] Referring Provider: Jesus Dhillon, [address], [place], [address] . tel:[phone] [facility], [address], [place], [place], [address], [place] [phone] [place] Professional No Information 9 Warren Lee. [address] [facility], [facility] [address], [place], [place], [address], [place]. tel:[phone] Office/outpa tient Visit, Est [facility], [address], [place], [place], [address], [place] [phone] [place] Professional Follow up visit (chief complaint) Subjective visual disturbance 8 Warren Lee. [address] [facility], [facility] [place], [address], . tel:[phone] Referring Provider: Jesus Dhillon, [address] [facility] [place], [address] . tel:[phone] [facility], [address] [place] [address] [address], [place], [address], [phone] [place] Professional Complete Exam (chief complaint) No Information 8 Warren Lee. [address] [facility], [facility] [place], [address], . tel:[phone] Referring Provider: Jesus Dhillon, [address] [place], [address] . tel:[phone] [facility], [address] [place] [address] [address], [place], [address], [phone] [place] Professional No Information 8 Warren Lee. [address] [facility], [facility] [place], [address], . tel:[phone] Family History Family Member Type Diagnosis Age At Onset Father Problem (finding) Diabetes mellitus Payers Payer name Insurance type Covered republican ID Sunnyana rosa kirtimitzy(s) [employer] Claims [id number] Social History Type Description Quantity Date Captured [...] Referral Referred To: Ayesha Keene [address] [place], [phone] Ordered: Referrals: Allopathic & Osteopathic Physicians : Ophthalmology. Ayesha Keene. Evaluate and treat ordered Referral Referred To: Sigrid Cardona MD [address] [place] [address], [phone] Ordered: Referrals: Ophthalmology. Sigrid Cardona MD ordered Referral Referred To: Sigrid Cardona [address] [place] [address], [phone] Ordered: Referrals: Allopathic & Osteopathic Physicians : [...]
--- OUTSIDE RECORDS SUMMARY | 2024-06-19 13:30 | XMS_ITS | Clinical Summary ---
Author Organization [facility] Address [address] [place] [address] Care Team Providers Care Can Repairer Name Role Phone Elie Soria DO Primary Care Provider [phone] Source Comments [facility],non-owned Affiliates and Associated Physician Practices is amultiple site organization consisting of ambulatory clinics and hospital sitesin [place], [place], [place] and [place]. This disclosure is being madepursuant to the Care Everywhere program and may not contain all information available regarding this patient. Last updated 17.[facility] [employer] Allergies No known active allergies Active Problems [...] to complete this topic MENINGOCOCCAL (Group B) VACC INE SHARED DECISION-MAKING Aged Out No longer eligibl e based on patient's age to complete this topic MENINGOCOCCAL GROUPS A/C/Y/W VACCINE Aged Out No longer eligible b ased on patient's age to complete this topic Care Teams Can Repairer Relationship Specialty Start Date End Date Elie Soria DO [address] [place] [address] PCP - General 01/10/18
--- OUTSIDE RECORDS SUMMARY | 2024-06-19 13:30 | XMS_ITS | Referral Summary ---
Author Organization [facility] Address [address] [place] [address] Care Team Providers Care Expeditionary Fighting Vehicle Crewman Name Role Phone Elie Soria DO Primary Care Provider [phone] [facility],non-owned Affiliates and Associated Physician Practices is amultiple site organization consisting of ambulatory clinics and hospital sitesin [place], [place], [place] and [place]. This disclosure is being madepursuant to the Care Everywhere program and may not contain all information available regarding this patient. Last updated 17.[facility] [employer] Allergies No known active allergies Active Problems [...] of Treatment Not on file Care Teams Expeditionary Fighting Vehicle Crewman Relationship Specialty Start Date End Date Elie Soria DO [address] [place], [place] [address] PCP - General 01/10/18
--- OUTSIDE RECORDS SUMMARY | 2024-06-19 13:30 | XMS_ITS | Patient Health Summary ---
Author Organization [facility] Address [address] [place] [address] Care Team Providers Care Gastroenterology Nurse Name Role Phone Elie Soria DO Primary Care Provider [phone] Note from [facility],non-owned Affiliates and Associated Physician Practices is amultiple site organization consisting of ambulatory clinics and hospital sitesin [place], [place], [place] and [place]. This disclosure is being madepursuant to the Care Everywhere program and may not contain all information available regarding this patient. Last updated 17.[facility] [employer] Allergies No known active allergies Active Problems [...] the orbits. Dictated by Liseth Alvarenga MD (university president). I, Dr. SONAM BARBA have personally reviewed [...] the orbits. Dictated by Liseth Alvarenga MD (university president). I, Dr. SONAM BARBA have personally reviewed and interpreted this examination/study. This report was electronically signed by SONAM BARBA on 07/25/2018 2:42PM . Yvonne Ferrari MD CT ORDERABLES * (ABNORMAL) CREATININE BLOOD - POCT (IP) [facility] (07/25/2018 1:49 PM CDT) Creatinine POCT 1.42(A) 0.3 - 1.3 mg/dL [facility] POCT TESTING eGFR POCT 38(A) 60 ml/min [facility] TEST[facility] Blood BLOOD SPECIMEN / Unknown 07/25/2018 1:49 PM CDT Ayesha Keene MD LAB - POINT OF CARE ORDERABLES [facility] POCT TESTING [address] [place] [address] * OPH COLOR FUNDUS PHOTOGRAPHY [facility] (04/18/2018 1:08 PM ERP DEVELOPER) Anatomical Region Laterality Modality Other 04/18/2018 1:08 PM ERP DEVELOPER Ayesha Keene MD OPHTHALMOLOGY SERVIC ES ORDERABLES * OPH VISUAL FIELD TEST [facility] (04/18/2018 10:47 AM ERP DEVELOPER) Anatomical Region Laterality Modality Other 04/18/2018 10:4 7 AM ERP DEVELOPER Ayesha Keene MD OPHTHALMOLOGY SERVIC ES ORDERABLES * OPH OCT TEST [facility] (04/18/2018 12:00 AM ERP DEVELOPER) Anatomical Region Laterality Modality Other 04/18/2018 Ayesha Keene MD OPHTHALMOLOGY SERVIC ES ORDERABLES Care Teams Gastroenterology Nurse Relationship Specialty Start Date End Date Elie Soria DO [address] [facility] [address] [place] [address] PCP - General 01/10/18
--- OUTSIDE RECORDS SUMMARY | 2024-06-19 13:30 | XMS_ITS ---
Author Organization [facility] Address [address] [place] [address] Care Team Providers Care Balloon Seller Name Role Phone Salazar Borjas MD Primary Care Provider Arturo Carpetner Unavailable [phone] Migration, Provider Unavailable Unavailable REASON FOR VISIT [...] Oral 08/23/2023 Active MICROLET MISCELLANEOUS *Reorder from [employer] for eRx and Interaction Alerts* 08/23/2023 Active Losartan Potassium 25 MG Oral 08/23/2023 Active glipiZIDE 5 MG Oral 08/23/2023 Acti ve lamoTRIgine 25 MG Oral 08/23/2023 A ctive Social History Sex Assigned At : Social History Observation Description Sex Assigned At Female Encounters Encounter Location Date Provider Diagnosis [facility] [employer] [address] [place] [address] 08/27/2023 Provider Migration Plan Of Treatment Next Appt Details Provider Name:Arturo oseguera, 07/11/2024 04:30:00 PM, [address], [address], [place], [address], Progress Notes * JAI GONZALES MDOB:[birth year] (77 yo F)Acc No.[id number]:08/27/2023 Patient: JAI WEEMS :1945 A ge:77 Y S ex:Female Address:[address] [place] [address] Subjective: * Chief Complaints: * E MR-Evan * Medical History: * Medical Resident History: M igrated GYNHistory M igrated GYNHistory:: [...] X capsl ctrc rmvl cplx wo ecp (98619) Hysterectomy/revise vagina (56161) Removal of ovary(s) (16483) Removal of gallbladder (68010) * Hospitalization/Major Diagno stic Procedure: * Family [...] MISCELLANEOUS , Notes to Pharmacist: *Reorder from [facility] for eRx and Interaction Alerts*Levothyroxine Sodium [...] MISCELLANEOUS , Notes to Pharmacist: *[facility] for eRx and Interaction Alerts*Taking Levothyroxine Sodium 50 MCG Tablet Oral Objective: * Vitals: * Physical Examination: Assessment: Plan: * Treatment: * Procedure Codes: * true * Date: Generated for Anai newell/Kailey/Jackie on: 0 06/19/2024 01:29 PM CDT
== END 2024-06-19 11:39 | disposition home or self-care (01) ==
LOC: ANHLAB 11:42
PROVIDERS: PCP Family Medicine; Visit Provider Nurse Practitioner Family
DX: E03.9 Hypothyroidism, unspecified (principal); I10 Essential (primary) hypertension; E11.9 Type 2 diabetes mellitus without complications; M81.0 Age-related osteoporosis without current pathological fracture; E55.9 Vitamin D deficiency, unspecified
CPT/HCPCS: 36415; 80053; 82306; 83036; 84443

== ENCOUNTER 2024-09-23 07:23 | Outpatient (CLI) | payer OTHER, SELFPAY ==
--- NOTE | ~2024-09-23 | NM_ITS ---
EXAMINATION: NM joyce stress w perfusion DATE: 09/23/2024 11:12 INDICATION: Rest pain TECHNIQUE: Rest images were obtained following intravenous administration of 10.51 mCi Tc99m tetrofos min (Myoview). The patient was infused intravenously with Lexiscan (Regadenoson). Then, 31.7 mCi Tc99 m tetrofosmin (Myoview) was administered intravenously, and stress images were obtained. Data was rec onstructed into short axis and horizontal and vertical long axis SPECT images. Gated SPECT images wer e also obtained. COMPARISON: None. FINDINGS: There is no definite reversible or fixed perfusion abnormality to suggest ischemia or infar ction. There is normal left ventricular chamber size, wall motion and ejection fraction. Left ventr icular ejection fraction measures >70%. IMPRESSION: 1. Normal myocardial perfusion at rest and during stress. 2. Left ventricular ejection fraction measuring >70%. Reviewed, dictated and finalized at location A.
--- OUTSIDE RECORDS SUMMARY | 2024-09-23 07:26 | XMS_ITS | Continuity of Care Document ---
Author Organization [facility] Address [address] [facility] [address] [place] [address] Phone Care Team Providers Care Bark Fitter Name Role Phone Rosemarie STONE, Amy Unavailable [...] Diagnoses Date Provider Providers Copied on Encounter formerly [facility], [address] [place] [address] [address], [place], [place], [address], tel:[phone] SEC [place] Professional No Information Oct-3 4 Rosemarie OD Amy. [address] [place] [address], [address], [place], [place], [address], . tel:[phone] [facility], [address] [facility] [address], [place], [place], [address], tel:[phone] [place] Professional diabetic eye exam [...] edema Oct-3 0- 4 Rosemarie OD Amy. [address], [place], [place], [address], [place]. tel:[phone] Referring Provider: Jesus Dhillon, [address], [place], [address] . tel:[phone] formerly [facility], [facility] [address], [place], [place], [address], [place] tel:[phone] [place] Professional diabetic eye exam (chief complaint) Age-related nuclear cataract, right eyePseudophaki a of left eyeType 2 diabetes mellitus without complicationsE piretinal membrane (ERM) of left eyeAmblyopia of left eye Oct-2 3 Rosemarie OD Amy. [facility] [address], [place], [place], [address], [place]. tel:[phone] Referring Provider: Jesus Dhillon, [address], [place], [address] . tel:[phone] formerly [facility], [facility] [address], [place], [place], [address], [place] tel:[phone] [place] Professional diabetic eye exam (chief complaint) Age-related nuclear cataract, right eyeEpiretinal membrane (ERM) of left eyeType 2 diabetes mellitus without complications Beni-2 2 Warren Lee. [address], [address], [place], [place], [address], [place]. tel:[phone] Referring Provider: Jesus Dhillon, [address], [place], [address] . tel:[phone] [place]/outpa [place] Visit, [facility], [facility] [address], [place], [place], [address], [place] tel:[phone] [place] Professional Cataract (chief complaint) Epiretinal membrane (ERM) of left eyePseudophaki a of left eyeAge-related nuclear cataract, right eyeType 2 diabetes mellitus without complications 1 Warren Lee. [address] [facility] [address], [address], [place], [place], [address], [place]. tel:[phone] Referring Provider: Jesus Dhillon, [address] [facility] [address], [place], [address] . tel:[phone] formerly [facility], [address], [place], [place], [address], [place] tel:[phone] [place] Professional Complete Exam (chief complaint) Age-related nuclear cataract, right eyePseudophaki a of left eyeEpiretinal membrane (ERM) of left eyeRPE mottling of maculaType 2 diabetes mellitus without complicationsP unctate keratitis, bilateralCrani al third nerve paralysis, left 1 Warren Lee. [address] [facility], [place], [place], [address], [place]. tel:[phone] Referring Provider: Jesus Dhillon, [address] [facility] [address], [place], [address] . tel:[phone] [place]/outpa [place]ient Visit, [facility] [place] [address], [place], [place], [address], [place] tel:[phone] [place] Professional pain and double [place] (chief complaint) Cranial third nerve paralysis, leftPtosis, left eyelidAfferent pupillary defect of left eye 0 Warren Lee. [address] [facility], [address], [place], [place], [address], [place]. tel:[phone] Referring Provider: Jesus Dhillon, [address] [facility] [address], [place], [address] . tel:[phone] Office/outpa [place]ient Visit, [facility] [address], [place], [place], [address], [place] tel:[phone] SEC [place] Professional Cataract Eval (chief complaint) Age-related nuclear cataract, right eyeAmblyopia of left eyePseudophaki a of left eyeType 2 diabetes mellitus without complications 0 Warren Lee. [address] [facility] [address] [employer], [address], [place], [place], [address], [place]. tel:[phone] Referring Provider: Jesus Dhillon, [address], [place], [address] . tel:[phone] formerly [facility], [address], [place], [place], [address], tel:[phone] SEC [place] Professional Complete Exam (chief complaint) Amblyopia of left eyeType 2 diabetes mellitus without complicationsE piretinal membrane (ERM) of left eyePunctate keratitis, left eyePseudophaki a of left eyeAge-related nuclear cataract, right eyeRPE mottling of maculaPallor of optic disc of left eyeVisual disturbance 0 Warren Lee. [address] [facility] [address] [employer], [address], [place], [place], [address], [place]. tel:[phone] Referring Provider: Jesus Dhillon, [address], [place], [address] . tel:[phone] [facility], [address], [place], [place], [address], [place] [phone] SEC [place] Professional No Information 9 Warren Lee. [address], [facility] [address], [place], [place], [address], [place]. tel:[phone] Office/outpa tient Visit, [facility], [address], [place], [place], [address], [place] [phone] SEC [place] Professional Follow up visit (chief complaint) Subjective visual disturbance 8 Warren Lee. [address] [facility], [facility] [place], [address], . tel:[phone] Referring Provider: Jesus Dhillon, [address] [facility] [place], [address] . tel:[phone] formerly [facility], [address] [place] [address] [address], [place], [address], [phone] SEC [place] Professional Complete Exam (chief complaint) No Information 8 Warren Lee. [address] [facility], [facility] [place], [address], . tel:[phone] Referring Provider: Jesus Dhillon, [address] [place], [address] . tel:[phone] formerly [facility], [address] [place] [address] [address], [place], [address], [phone] SEC [place] Professional No Information 8 Warren Lee. [address] [facility], [facility] [place], [address], . tel:[phone] Family History Family Member Type Diagnosis Age At Onset Father Problem (finding) Diabetes mellitus Payers Payer name Insurance type Covered constitution party ID Sunnyana rosa kirtimitzy(s) [employer] [id number] Social History Type Description Quantity Date Captured [...] Referral Referred To: Ayesha Keene [address] [place], [phone] Ordered: Referrals: Allopathic & Osteopathic Physicians : Ophthalmology. Ayesha Keene. Evaluate and treat ordered Referral Referred To: Sigrid Cardona MD [address] [place] [address], [phone] Ordered: Referrals: Ophthalmology. Sigrid Cardona MD ordered Referral Referred To: Sigrid Cardona [address] [place] [address], [phone] Ordered: Referrals: Allopathic & Osteopathic Physicians : [...]
--- OUTSIDE RECORDS SUMMARY | 2024-09-23 07:26 | XMS_ITS | Clinical Summary ---
Author Organization [facility] Address [address] [facility] [place] [address] Care Team Providers Care Liquor Commissioner Name Role Phone Elie Soria DO Primary Care Provider [phone] Source Comments [facility],non-owned Affiliates and Associated Physician Practices is amultiple site organization consisting of ambulatory clinics and hospital sitesin [place], [place], [place] and [place]. This disclosure is being madepursuant to the Care Everywhere program and may not contain all information available regarding this patient. 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 Blurred vision, bilateral 04/18/2018 Social History Tobacco Use Types Packs/Day Years Used Date Smoking Tobacco: Never Assessed Comments Unknown Sex and Gender Information Value Date Recorded Sex Assigned at Not on file Legal Sex Female 2:21 PM CDT Gender Identity Not on file Sexual Orientation [...] VACCINE ( - 2023-2 5 season) 2023 DEPRESSION SCREENING 04/10/2024 INFLUENZA VACCINE (Season Ended) 2024 HEPATITIS B VACCINE Aged Out No [...] on patient's age to complete this topic Insurance [employer] MEDICARE Care Teams Liquor Commissioner Relationship Specialty Start Date End Date Elie Soria DO [address] [place] [address] [facility] - General 01/10/18
--- OUTSIDE RECORDS SUMMARY | 2024-09-23 07:26 | XMS_ITS | CONTINUITY OF CARE DOCUMENT ---
Author Name alvarado childers Address Unknown Organization [facility] Address [address] [place] [address] [address] [place] [address] Phone [phone] Care Team Providers Care Choir Director Name Role Phone alvarado childers Unavailable Unavailable
--- OUTSIDE RECORDS SUMMARY | 2024-09-23 07:26 | XMS_ITS | Patient Health Record ---
Author Organization [facility] Address [address] [place] [address] Care Team Providers Care Site Director Name Role Phone Salazar Borjas MD Primary Care Provider UnavailArturo Olivier Unavailable [phone] Allergies No Known Allergies Reason For Referral No Information Medications Medication SIG (Take, Route, Frequency, Duration) Notes Start Date End Date Status lamoTRIgine 25 MG Oral 08/23/2023 A ctive MICROLET MISCELLANEOUS *Reorder from [employer] for eRx and Interaction Alerts* 08/23/2023 Active Losartan Potassium 25 MG Oral 08/23/2023 Active metFORMIN HCl 1000 MG Oral 08/23/2023 Active glipiZIDE 5 MG Oral 08/23/2023 Acti ve Alendronate Sodium 70 MG Oral 08/23/2023 Active methylPREDNISolone 4 MG Oral 08/23/2023 Not-Taking buPROPion HCl ER (XL) 150 MG 1 tablet in the morning Oral Once a day for 90 days Active Furosemide 20 MG Oral 08/23/2023 Ac tive Contour Blood Glucose System w/Device In Vitro 08/23/2023 Active Levothyroxine Sodium 50 MCG Oral 08/23/2023 Active Immunizations Vaccine Route Administration Date Status Comme [...] Risk Notes Problem Mild recurrent major depression (52493980) Major depressive disorder, recurrent, mild (F33.0) Active confirmed Problem Generalized anxiety disorder (25677573) Generalized anxiety disorder (F41.1) Active confirmed Problem Insomnia (756595178) Other insomnia (G47.09) Active confirmed Problem Panic disorder [episodic paroxysmal anxiety] without agoraphobia (F41.0) Active confirmed Vital Signs Heart Rate 73 /min 07/11/2024 Height-cm 162.56 cm 07/11/2024 Blood pressure diastolic 78 mm Hg 07/11/2024 Weight-kg 90.9 kg 07/11/2024 Height 64.00 in 07/11/2024 Blood pressure systolic 146 mm Hg 07/11/2024 Weight 200.4 lbs 07/11/2024 BMI 34.39 kg/m2 07/11/2024 Encounters Encounter Location Date Provider Diagnosis [employer] [address] [facility] [address] [address] 11/22/2023 Arturo Woo Generalized anxiety disorder F41.1 ; Panic disorder [episodic paroxysmal anxiety] without agoraphobia F41.0 ; Major depressive disorder, recurrent, mild F33.0 and Other insomnia G47.09 [facility] [employer] [facility] [address] [address] 03/13/2024 rAturo Woo Hypertension, unspecified type 401.9 ; Generalized anxiety disorder F41.1 ; Panic disorder [episodic paroxysmal anxiety] without agoraphobia F41.0 ; Major depressive disorder, recurrent, mild F33.0 and Other insomnia G47.09 [facility] [employer] [address] [place] [address] 07/11/2024 Arturo Woo Major depressive disorder, recurrent, mild F33.0 ; Panic disorder [episodic paroxysmal anxiety] without agoraphobia F41.0 ; Other insomnia G47.09 ; Encounter for screening for depression Z13.31 ; Generalized anxiety disorder F41.1 ; Encounter for screening for cardiovascular disorders Z13.6 and Dietary counseling and surveillance Z71.3 Assessments Encounter Date Diagnosis (ICD Code) Assessment [...] for a referral for the new year. 07/11/2024 Major depressive disorder, recurrent, mild (ICD-10 - F33.0) 03/13/2024 Generalized anxiety disorder (ICD-10 - F41.1) [...] for a referral for the new year. 07/11/2024 Panic disorder [episodic paroxysmal anxiety] without agoraphobia (ICD-10 - F41.0) stable 11/22/2023 Major depressive disorder, recurrent, mild (ICD-10 [...] to monitor progress and address any concerns. 07/11/2024 Other insomnia (ICD-10 - G47.09) practice good sleep hygiene 03/13/2024 Panic disorder [episodic paroxysmal anxiety] without [...] for a referral for the new year. 07/11/2024 Generalized anxiety disorder (ICD-10 - F41.1) stable 07/11/2024 Encounter for screening for depression (ICD-10 - Z13.31) 07/11/2024 Encounter for screening for cardiovascular disorders (ICD-10 - Z13.6) 03/13/2024 Other insomnia (ICD-10 - G47.09) practice [...] for a referral for the new year. 07/11/2024 Dietary counseling and surveillance (ICD-10 - Z71.3) 07/11/2024 Braydon Pan, a female patient with a history of depression and anxiety, presents for follow-up with ongoing management of mood symptoms and recent concerns about cardiac issues. Major Depressive Disorder Assessment: Patient reports ongoing depressive symptoms that occur every now and then but do not persist for long periods. She employs coping strategies such as redirecting her thoughts when experiencing depressive episodes. Current treatment with bupropion 150 mg daily appears to be providing some benefit, as the patient reports improved sleep quality. Plan: - Continue bupropion 150 mg PO daily - Encourage continued use of coping strategies for managing depressive symptoms - Follow up in 4 months Generalized Anxiety Disorder Assessment: Patient reports reduced anxiety symptoms compared to previous levels, stating Not like it used to be. She has been implementing breathing exercises and counting techniques to manage anxiety when it occurs, which she finds helpful. Plan: - Continue current management approach - Reinforce use of breathing exercises and counting techniques for anxiety management Suspected Cardiac Issues Assessment: Patient reports experiencing pain in the chest and neck area for some time. Recent EKG showed abnormalities, prompting referral to a steel crane operator. Patient has an appointment scheduled for further evaluation on the of the current month. Plan: - Await cardiology evaluation and recommendations - Advise patient to report any worsening of symptoms or new concerns prior to cardiology appointment the note is transcribed using speech recognition software. It is a reflection of a visit with the patient. It might have some inaccuracy, including medication names and transcribing errors, though efforts have been made to correct them. Plan Of Treatment Next Appt Details Provider Name:Arturo Okeefe ana rosa, 11/11/2024 03:45:00 PM, [address] [facility] [address], [facility] [address], [place], [address], Insurance Providers Payer Name Payer Address Payer Phone Subscriber Number Group Number Insured Name Patient Relationship to Insured Coverage Start Date Coverage End Date [employer] Medicare Replacement/ Advantage - Hmo [address] [place] [address] [id number] MERARYMICHEL JOYA OMARMANCHESTER Self - patient is the insured Medical (General) History Medical History History ICD Code Problems: Generalized anxiety disorder Mild recurrent major depression Moderate recurrent major depression Panic disorder Panic disorder without agoraphobia Persistent insomnia Severe recurrent major depression withou t psychotic features , Surgical History Surgery Date(Month/Year) Xcapsl ctrc rmvl cplx wo ecp (39717) Removal of gallbladder (24134) Removal of ovary(s) (79273) Hysterectomy/revise vagina (82678)
--- NOTE | 2024-09-23 07:35 | ECHO_ITS ---
Patient Info Name: Jeanette Pan Age: 78 years : 1945 Gender: Female Ht: 66 in Wt: 203 lbs BSA: 2.10 m2 HR: 62 bpm BP: 157 / 73 mmHg Technical Quality: Fair Exam Date: 09/23/2024 7:55 AM Patient Status: O Admit Date: 09/23/2024 Exam Type: CA echo doppler color flow Complete two-dimensional, color flow and Doppler transthoracic echocardiogram is performed. Staff Referring Physician: Derek Haynes DO Cath Lab Radiology Technician: Deb Giron Attending Provider: Derek Haynes DO Summary 1. Complete two-dimensional, color flow and Doppler transthoracic echocardiogram is performed. 2. Left ventricular chamber dimension is normal. 3. Left ventricular systolic function is normal, estimated at 65-70. 4. There is mild concentric increased left ventricular wall thickness. 5. The left ventricular diastolic function is grade I diastolic dysfunction. 6. E/e' 10 is mildly elevated. 7. There is mild aortic valve sclerosis. 8. There is mild aortic valve regurgitation. 9. No pulmonary hypertension, estimated pulmonary arterial systolic pressure is 32 mmHg. Left Ventricle E/e' 10 is mildly elevated. Left ventricular chamber dimension is normal. Left ventricular systolic function is normal, estimated at 65-70. There is mild concentric increased left ventricular wall thickness. The left ventricular diastolic function is grade I diastolic dysfunction. Right Ventricle Right ventricular chamber dimension is normal. Right ventricular systolic function is normal. Left Atria Left atrial chamber dimension is normal. Right Atria Right atrial chamber dimension is normal. Aortic Valve The aortic valve is trileaflet. There is mild aortic valve sclerosis. There is no aortic valve stenosis. There is mild aortic valve regurgitation. Pulmonic Valve There is no pulmonic regurgitation. Mitral Valve There is no mitral valve stenosis. There is no mitral valve regurgitation. Tricuspid Valve There is no tricuspid valve regurgitation. No pulmonary hypertension, estimated pulmonary arterial systolic pressure is 32 mmHg. Pericardium/Pleural There is no pericardial effusion. Inferior Vena Cava Normal inferior vena cava with >50% collapse upon inspiration consistent with normal right atrial pressure, 5 mmHg. Aorta The aortic root size at the sinus of Valsalva is normal. Left Ventricular Outflow Tract Name Value Normal LVOT 2D LVOT Diameter 2.0 cm LVOT Doppler LVOT Peak Velocity 114 cm/s LVOT Peak Gradient 5 mmHg LVOT Mean Gradient 3 mmHg LVOT VTI 27 cm LVOT VTI/AV VTI Ratio 0.8 LVOT Stroke Volume 83 ml LVOT CO 4.5 l/min LVOT CI 2.1 l/min/m2 Pulmonic Valve Name Value Normal RVOT Doppler RVOT Peak Velocity 87 cm/s RVOT Peak Gradient 3 mmHg PV Doppler PV Peak Velocity 115 cm/s PV Peak Gradient 5 mmHg Mitral Valve Name Value Normal MV Diastolic Function MV E Peak Velocity 86 cm/s MV A Peak Velocity 99 cm/s MV E/A 0.9 MV Decel Time (PW) 214 ms Tricuspid Valve Name Value Normal TV Regurgitation Doppler TR Peak Velocity 261 cm/s TR Peak Gradient 23 mmHg Estimated PAP/RSVP RA Pressure 5 mmHg <=5 PA Systolic Pressure 32 mmHg <36 RV Systolic Pressure 32 mmHg <36 Aorta Name Value Normal Ascending Aorta Ao Root Diameter (MM) 3.0 cm Ao Root Diam Index (MM) 1.4 cm/m2 Aortic Valve Name Value Normal AV Doppler AV Peak Velocity 154 cm/s AV Peak Gradient 8 mmHg AV Mean Gradient 4 mmHg AV VTI 35 cm AV Area (Cont Eq VTI) 2.4 cm2 >=3.0 AV Area (Cont Eq Shankar) 2.3 cm2 AV DI (Shankar) 0.74 AV Regurgitation 2D LVOT Area 3.1 cm2 Ventricles Name Value Normal LV Dimensions 2D/MM IVS Diastolic Thickness (2D) 0.9 cm 0.6-1.0 IVS Diastole Thickness (MM) 0.8 cm 0.6-0.9 LVID Diastole (2D) 4.2 cm 3.8-5.2 LVID Diastole (MM) 5.5 cm 3.8-5.2 LVIW Diastolic Thickness (2D) 1.4 cm 0.6-0.9 LVIW Diastolic Thickness (MM) 1.0 cm 0.6-0.9 LVID Systole (2D) 2.9 cm 2.2-3.5 LVID Systole (MM) 2.8 cm 2.2-3.5 LVOT Diameter 2.0 cm LV Mass (2D Cubed) 164.71 g 67.00-162.00 LV Mass Index (2D Cubed) 78 g/m2 43-95 Relative Wall Thickness (2D) 0.66 <=0.42 LV Mass (MM Cubed) 183.50 g 67.00-162.00 LV Mass Index (MM Cubed) 87 g/m2 43-95 Relative Wall Thickness (MM) 0.36 LV Fractional Shortening/Ejection Fraction 2D/MM LV Fractional Shortening (2D) 29 % 27-45 LV Fractional Shortening (MM) 49 % 27-45 LV EF (MM Teichholz) 80 % LV EF (2D Teichholz) 56 % LV Diastolic Volume (4C MOD) 65 ml LV EF (4C MOD) 82 % LV Diastolic Volume (2C MOD) 42 ml LV EF (2C MOD) 75 % LV Diastolic Volume (BP MOD) 52 ml 46-106 LV Diastolic Volume Index (BP MOD) 25 ml/m2 29-61 LV Systolic Volume (BP MOD) 12 ml 14-42 LV Systolic Volume Index (BP MOD) 6 ml/m2 8-24 LV EF (BP MOD) 78 % 54-74 LV Diastolic Length (4C) 7.2 cm LV Systolic Length (4C) 5.2 cm LV Stroke Volume (4C MOD) 53 ml LV CO (BP MOD) 22.1 l/min LV CI (BP MOD) 10.5 l/min/m2 Atria Name Value Normal LA Dimensions LA Dimension (MM) 3.5 cm 2.7-3.8 LA Volume (4C A-L) 33 ml LA Volume (BP A-L) 43 ml RA Dimensions RA Systolic Major [place] Length (4C) 4.3 cm 2.2-2.8 RA Area (4C) 10.2 cm2 <=18.0 Report Signatures
--- NOTE | 2024-09-23 07:35 | EST_ITS ---
Patient Info Name: Jeanette Pan Age: 78 years : 1945 Gender: Female Ht: 66 in Wt: 203 lbs BSA: 2.10 m2 HR: 61 bpm BP: 151 / 63 mmHg Exam Date: 09/23/2024 7:35 AM Patient Status: O Admit Date: 09/23/2024 Exam Type: CA stress joyce w NM A regadenoson stress test was performed. Staff Referring Physician: Derek Haynes DO Attending Provider: Derek Haynes DO Exercise Technologist: Johanne Najera Exercise Physician: Derek Haynes DO Summary 1. 1. Negative lexiscan stress test for ischemic ST changes by ECG criteria. 2. 2. Baseline hypertension. 3. 3. Nuclear scan to follow and will be reported separately. Please correlate with it. 4. 4. Patient informed of the above results. Protocol: Lexiscan Stress ECG Details Stage: REST Duration (min): 1 min : 7 sec HR (bpm): 60 SBP (mmHg): 151 DBP (mmHg): 63 Stage: REST Duration (min): 10 min : 24 sec HR (bpm): 61 SBP (mmHg): 151 DBP (mmHg): 63 Stage: STAGE 1 Duration (min): 0 min : 59 sec HR (bpm): 78 SBP (mmHg): 162 DBP (mmHg): 66 Stage: RECOVERY Duration (min): 1 min : 0 sec HR (bpm): 74 SBP (mmHg): 162 DBP (mmHg): 66 Stage: RECOVERY Duration (min): 2 min : 0 sec HR (bpm): 69 SBP (mmHg): 162 DBP (mmHg): 66 Stage: RECOVERY Duration (min): 3 min : 0 sec HR (bpm): 67 SBP (mmHg): 162 DBP (mmHg): 66 Stage: RECOVERY Duration (min): 3 min : 32 sec HR (bpm): 66 SBP (mmHg): 162 DBP (mmHg): 66 Rest HR: 61 bpm Peak HR: 81 bpm Rest Sys BP: 151 mmHg Peak Sys BP: 162 mmHg Max Pred HR: 140 bpm % Max Pred HR: 58 % Target HR: 119 bpm Max RPP: 13,122 bpm*mmHg Termination Reason: Completed protocol Cardiac Symptoms: Shortness of breath Total Time: 1 min : 0 sec Rest Adam BP: 63 mmHg Peak Adam BP: 66 mmHg Total Dose: 0.4 mg Resting ECG Sinus rhythm. Stress ECG No ST changes. Arrhythmias None. Report Signatures
== END 2024-09-23 07:24 | disposition home or self-care (01) ==
PROVIDERS: PCP Nurse Practitioner Family; Visit Provider Internal Medicine Cardiovascular Disease
DX: R06.09 Other forms of dyspnea (principal); I35.8 Other nonrheumatic aortic valve disorders; I35.1 Nonrheumatic aortic (valve) insufficiency; I51.89 Other ill-defined heart diseases
CPT/HCPCS: 78452; 93017; 93306; A9502; J2785

== ENCOUNTER 2024-11-18 14:00 | Outpatient (CLI) | payer OTHER, SELFPAY ==
--- OUTSIDE RECORDS SUMMARY | 2024-11-18 13:58 | XMS_ITS | Clinical Summary ---
Author Organization [facility] Address [address] [place] [address] Care Team Providers Care Wire Turning Machine Operator Name Role Phone Elie Soria DO Primary Care Provider [phone] Source Comments [facility],non-owned Affiliates and Associated Physician Practices is amultiple site organization consisting of ambulatory clinics and hospital sitesin [place], [place], [place] and [place]. This disclosure is being madepursuant to the Care Everywhere program and may not contain all information available regarding this patient. Last updated 17.[facility] Allergies No known active allergies Active Problems [...] season) 2023 DEPRESSION SCREENING 04/10/2024 INFLUENZA VACCINE (#1) 2024 HEPATITIS B VACCINE Aged Out No [...] to complete this topic Insurance [employer] Member Subscriber Plan / Payer (Ef fective 2017-Present) Name:Jeanette Pan Relation to Subscriber:Self Name:Jeanette Pan Payer ID:[id number] (NAIC) Type:Medicare-[employer] Care Address: [facility] [place] [address] MEDICARE Member Subscriber Plan / Payer (Ef fective 2017-Present) Name:Jeanette Pan Relation to Subscriber:Self Name:Jeanette Pan Payer ID:[id number] (NAIC) Type:Medicare-[employer] Care Address: [employer] [address] [place], [place] [id number] Care Teams Wire Turning Machine Operator Relationship Specialty Start Date End Date Elie Soria DO [address] [place] [address] [facility] - General 01/10/18
--- OUTSIDE RECORDS SUMMARY | 2024-11-18 13:58 | XMS_ITS | Patient Health Record ---
Author Organization [facility] Address [address] [place] [address] Care Team Providers Care Button Sewing Machine Operator Name Role Phone Salazar Borjas MD Primary Care Provider UnavailArturo Olivier Unavailable [phone] Allergies No Known Allergies Reason For Referral No Information Medications Medication SIG (Take, Route, Frequency, Duration) Notes Start Date End Date Status Alendronate Sodium 70 MG Oral 08/23/2023 Active lamoTRIgine 25 MG Oral 08/23/2023 A ctive metFORMIN HCl 1000 MG Oral 08/23/2023 Active glipiZIDE 5 MG Oral 08/23/2023 Acti ve Contour Blood Glucose System w/Device In Vitro 08/23/2023 Active Losartan Potassium 25 MG Oral 08/23/2023 Active Furosemide 20 MG Oral 08/23/2023 Ac tive buPROPion HCl ER (XL) 150 MG 1 tablet in the morning Oral Once a day; Duration: 90 days Active methylPREDNISolone 4 MG Oral 08/23/2023 Not-Taking MICROLET MISCELLANEOUS *Reorder from [employer] for eRx and Interaction Alerts* 08/23/2023 Active [...] Risk Notes Problem Mild recurrent major depression (82935539) Major depressive disorder, recurrent, mild (F33.0) Active confirmed Problem Generalized anxiety disorder (58385156) Generalized anxiety disorder (F41.1) Active confirmed Problem Insomnia (134892254) Other insomnia (G47.09) Active confirmed Problem Panic disorder [episodic paroxysmal anxiety] without agoraphobia (F41.0) Active confirmed Vital Signs Heart Rate 73 /min 07/11/2024 Height-cm 162.56 cm 11/11/2024 Blood pressure diastolic 77 mm Hg 11/11/2024 Weight-kg 89.27 kg 11/11/2024 Height 64.00 in 11/11/2024 Blood pressure systolic 152 mm Hg 11/11/2024 Weight 196.8 lbs 11/11/2024 BMI 33.78 kg/m2 11/11/2024 Encounters Encounter Location Date Provider Diagnosis [facility] [address] [facility] [address] [address] 11/22/2023 Arturo Woo Generalized anxiety disorder F41.1 ; Panic disorder [episodic paroxysmal anxiety] without agoraphobia F41.0 ; Major depressive disorder, recurrent, mild F33.0 and Other insomnia G47.09 [facility] [address] [address] 03/13/2024 Arturo Woo Hypertension, unspecified type 401.9 ; Generalized anxiety disorder F41.1 ; Panic disorder [episodic paroxysmal anxiety] without agoraphobia F41.0 ; Major depressive disorder, recurrent, mild F33.0 and Other insomnia G47.09 [facility] [address] [place] [address] 07/11/2024 Arturo Woo Major depressive disorder, recurrent, mild F33.0 ; Panic disorder [episodic paroxysmal anxiety] without agoraphobia F41.0 ; Other insomnia G47.09 ; Encounter for screening for depression Z13.31 ; Generalized anxiety disorder F41.1 ; Encounter for screening for cardiovascular disorders Z13.6 and Dietary counseling and surveillance Z71.3 [facility] [address] [place] [address] 11/11/2024 Arturo Woo Major depressive disorder, recurrent, mild F33.0 ; Panic disorder [episodic paroxysmal anxiety] without agoraphobia F41.0 ; Other insomnia G47.09 and Generalized anxiety disorder F41.1 Assessments Encounter Date Diagnosis (ICD Code) Assessment Notes Treatment Notes Treatment Clinical Notes Section Notes 11/22/2023 Panic disorder [episodic paroxysmal anxiety] without [...] Plan: - Encourage patient to engage in stress-reducin g activities and seek support when needed. Monitor [...] depressive disorder, recurrent, mild (ICD-10 - F33.0) 11/11/2024 Major depressive disorder, recurrent, mild (ICD-10 - F33.0) 11/22/2023 Generalized anxiety disorder (ICD-10 - F41.1) [...] Plan: - Encourage patient to engage in stress-reducin g activities and seek support when needed. Monitor [...] to monitor progress and address any concerns. 11/11/2024 Panic disorder [episodic paroxysmal anxiety] without agoraphobia [...] Plan: - Encourage patient to engage in stress-reducin g activities and seek support when needed. Monitor [...] monitor progress and address any concerns. 07/11/2024 Panic disorder [episodic paroxysmal anxiety] without agoraphobia (ICD-10 - F41.0) stable 03/13/2024 Generalized anxiety disorder (ICD-10 - F41.1) [...] a referral for the new year. 07/11/2024 Other insomnia (ICD-10 - G47.09) practice [...] for a referral for the new year. 11/11/2024 Other insomnia (ICD-10 - G47.09) practice good sleep hygiene 11/22/2023 Other insomnia (ICD-10 - G47.09) 1. [...] Plan: - Encourage patient to engage in stress-reducin g activities and seek support when needed. Monitor [...] to monitor progress and address any concerns. 11/11/2024 Generalized anxiety disorder (ICD-10 - F41.1) stable 07/11/2024 Encounter for screening for depression (ICD-10 - Z13.31) 07/11/2024 Generalized anxiety disorder (ICD-10 - F41.1) stable 03/13/2024 Major depressive disorder, recurrent, mild (ICD-10 [...] a referral for the new year. 07/11/2024 Encounter for screening for cardiovascular disorders (ICD-10 - Z13.6) 07/11/2024 Dietary counseling and surveillance (ICD-10 - Z71.3) 07/11/2024 Other Jeanette Pan, a female patient with a history [...] EKG showed abnormalities, prompting referral to a technology development intern. Patient has an appointment scheduled for further evaluation on the of the current month. Plan: - Await cardiology evaluation and recommendation s - Advise patient to report any worsening of symptoms or new concerns prior to cardiology appointment the note is transcribed using speech recognition software. It is a reflection of a visit with the patient. It might have some inaccuracy, including medication names and transcribing errors, though efforts have been made to correct them. 11/11/2024 Other Mild Depression Assessment: Patient reports experiencing maybe a little depression, primarily related to intermittent relationship difficulties with her daughter. Despite these challenges, the patient demonstrates resilience by continuing to reach out to her daughter on special occasions. The depression appears to be situational and mild in nature, not significantly impacting daily functioning. Plan: - Continue bupropion - Encourage maintaining positive communication attempts with daughter Sleep Disturbance Assessment: Patient reports trouble sleeping, likely due to late-night screen time (phone games and TV watching until 1:30-2:30 AM). She typically wakes around 10:30 AM, which fits her retired lifestyle. The sleep disturbance appears to be primarily related to poor sleep hygiene rather than a primary sleep disorder. Plan: - Educate on sleep hygiene, particularly regarding the impact of screen time on sleep quality - Recommend reducing screen time before bed Medication Management Assessment: Patient reports good medication adherence using a pill organizer. No side effects reported from current medications. Plan: - Refill medications for 4 months - Send prescription to pharmacy for pickup the note is transcribed using speech recognition software. It is a reflection of a visit with the patient. It might have some inaccuracy, including medication names and transcribing errors, though efforts have been made to correct them. Plan Of Treatment Next Appt Details Provider Name:Arturo Keating Sary oseguera, 03/03/2025 03:30:00 PM, [address], [address], [place], [address], Insurance Providers Payer Name Payer Address Payer Phone Subscriber Number Group Number Insured Name Patient Relationship to Insured Coverage Start Date Coverage End Date [employer] Medicare Replacement/ Advantage - [employer] [address] [place] [phone] [id number] [place] Self - patient is the insured Medical (General) History Medical History History ICD Code Problems: Generalized anxiety disorder Mild recurrent major depression Moderate recurrent major depression Panic disorder Panic disorder without agoraphobia Persistent insomnia Severe recurrent major depression withou t psychotic features , Surgical History Surgery Date(Month/Year) Xcapsl ctrc rmvl cplx wo ecp (13449) Removal of gallbladder (60181) Removal of ovary(s) (30290) Hysterectomy/revise vagina (72892)
[2024-11-18 14:28] LABS: Hematocrit 41.1 % (37.0-47.0); Hemoglobin 13.3 g/dL (12.0-15.0); Immature Granulocyte Percent A 0.3 % (0-0.5); Lymphocytes Absolute Auto 1.46 K/mm3 (0.9-3.2); Mean Corpuscular HGB Conc 32.4 g/dl (32-36); Mean Corpuscular Hemoglobin 29.3 pg (26-34); Mean Corpuscular Volume 90.5 fl (80-100); Nucleated Red Blood Cells Absolute Auto 0.000 K/mm3 (0.0-0.012); Nucleated Red Blood Cells Perc 0.0 % (0.0-0.2); Platelet Count Result 180 k/mm3 (150-375); Red Blood Count 4.54 M/mm3 (4.2-5.4); White Blood Count 6.1 K/mm3 (4.5-10.0)
[2024-11-18 14:54] LABS: Alanine Aminotransferase 30 U/L (6-35); Albumin Level 4.1 g/dL (3.5-5.1); Alkaline Phosphatase 52 U/L (38-126); Anion Gap 8 mmol/L (4-12); Aspartate Amino Transferase 34 U/L (14-36); Bilirubin,Total 0.9 mg/dL (0.2-1.3); Blood Urea Nitrogen 18 mg/dL (7-17); Calcium 9.2 mg/dL (8.4-10.2); Carbon Dioxide 26 mmol/L (22-30); Chloride 103 mmol/L (98-107); Cholesterol 163 mg/dL (0-200); Estimated Glomerular Filt Rate 53; Glucose 132 mg/dL (65-110); HDL Direct 43 mg/dL; Potassium 5.1 mmol/L (3.4-5.0); Sodium 137 mmol/L (137-145); Total Protein 7.2 g/dL (6.3-8.2); Triglycerides 241 mg/dL (<150)
[2024-11-18 15:29] LABS: Thyroid Stimulating Hormone 3.680 uIU/mL (0.465-4.680)
[2024-11-18 16:53] LABS: Free T4 Free Thyroxine 1.06 ng/dL (0.78-2.19)
[2024-11-18 16:56] LABS: MALB Creatinine Ratio 8.7 mg/g (0-30)
[2024-11-18 18:32] LABS: Hemoglobin A1C 6.6 % (<5.7)
== END 2024-11-18 14:01 | disposition home or self-care (01) ==
PROVIDERS: PCP Nurse Practitioner Family; Visit Provider Nurse Practitioner Family
DX: F33.1 Major depressive disorder, recurrent, moderate (principal); I10 Essential (primary) hypertension; E11.9 Type 2 diabetes mellitus without complications; E03.9 Hypothyroidism, unspecified; M81.0 Age-related osteoporosis without current pathological fracture; E66.9 Obesity, unspecified; K21.9 Gastro-esophageal reflux disease without esophagitis; M25.512 Pain in left shoulder; E78.2 Mixed hyperlipidemia
CPT/HCPCS: 36415; 80053; 80061; 82043; 82306; 83036; 84439; 84443; 85025

== ENCOUNTER 2024-12-19 09:27 | Outpatient (CLI) | payer OTHER, SELFPAY ==
--- NOTE | ~2024-12-19 | CT_ITS ---
EXAMINATION: CT brain & sinus wo con, 12/19/2024 9:30 CDT HISTORY: Dizziness, giddiness, sinusitis x years COMPARISON: No comparisons available. Technique: Axial images obtained of the brain and sinuses without contrast. One or more of the following dose reduction techniques were used: automated exposure control, adjustment of the mA and/or kV according to patient size, use of iterative reconstruction technique. Findings: CT brain: No acute infarct or parenchymal hemorrhage. No abnormal mass or mass effect. No midline shift. No extra-axial fluid collections. No hydrocephalus. Mastoid air cells unremarkable. Orbits unremarkable No acute fracture. No significant facial or scalp soft tissue swelling evident. No radiopaque foreign body is seen. CT sinuses: The frontal sinuses are unremarkable. Minimal mucosal thickening in the ethmoidal air cells. Maxillary sinuses are unremarkable. The ostiomeatal complexes are patent. Nasal septum is deviated to the left with mild thickening of the right-sided turbinates and mild narrowing of the right nasal cavity. No osseous destruction or wall thickening identified. The sphenoid sinuses appear unremarkable. Impression: 1.No acute intracranial abnormality. 2. Minimal sinusitis Reviewed, dictated and finalized at location A. Impression: 1.No acute intracranial abnormality. 2. Minimal sinusitis
== END 2024-12-19 09:28 | disposition home or self-care (01) ==
LOC: MICIMG 09:28
PROVIDERS: PCP Nurse Practitioner Family; Visit Provider Nurse Practitioner Family
DX: R42 Dizziness and giddiness (principal); R09.81 Nasal congestion
CPT/HCPCS: 70450; 70486